=== PATIENT | male | born 1950 | race American Indian/Alaskan Native ===

== ENCOUNTER 2020-04-08 21:18 | Inpatient (IN) | payer MEDICARE ==
--- NOTE | 2020-04-08 23:34 | Cat Scan Report ---
CT HEAD WITHOUT CONTRAST INDICATION: Syncope TECHNIQUE: Axial slices were obtained through the head. Coronal and sagittal reformatted images are i s a 3A image obtained. COMPARISON: CT scan dated 09/19/2014 FINDINGS: There is no intracranial hemorrhage or extra-axial fluid collection. There is atrophy and microangiop athy. Ventricles are normal in size and position. Basal cisterns are maintained. There is no mass les ion or midline shift. There is decreased attenuation in the right frontal lobe white matter and poste rior negro matter characteristic of ischemic change. This was not present previously this appears to b e subacute or chronic. There are lacunar infarcts in the right basal ganglia and left thalamus which were present previously. Bone windows demonstrate no acute osseous abnormality. There is mucosal thickening in the right maxil skyla sinus. The TECHNIQUE: All CT scans at this facility use dose modulation, iterative reconstruction, automated ex posure control, weight based dosing, when appropriate, to reduce radiation dose to as low as reasonab ly achievable. IMPRESSION: 1. There is decreased attenuation in the right frontal white matter and right posterior frontal lobe negro matter characteristic of ischemic change. This appears to be subacute or chronic. There is no in tracranial hemorrhage. 2. There is atrophy and microangiopathy. 3. Chronic lacunar infarcts are noted in the right basal ganglia and left thalamus. Signer Name: Abimael Doll MD Signed: 04/08/2020 11:30 PM Workstation Name: [id number]
[2020-04-08 23:42] LABS: Basophils # (Auto) 0.1 K/mm3 (0.0-0.1); Basophils % (Auto) 0.8 % (0.0-1.8); Eosinophils # (Auto) 0.1 K/mm3 (0.0-0.4); Eosinophils % (Auto) 1.2 % (0.0-4.3); Hematocrit 35.4 % (35.5-45.6); Hemoglobin 11.8 gm/dl (11.8-15.2); Lymphocytes % (Auto) 29.4 % (13.4-35.0); Mean Corpuscular HGB Conc 33 % (32-34); Mean Corpuscular Volume 93 fl (84-94); Monocytes # (Auto) 0.5 K/mm3 (0.0-0.8); Monocytes % (Auto) 7.9 % (0.0-7.3); Platelet Count 234 K/mm3 (140-440); Red Cell Distribution Width 14.5 % (13.2-15.2)
[2020-04-08 23:55] LABS: INR 0.93 (0.87-1.13)
[2020-04-08 23:59] LABS: Alanine Aminotransferase 13 units/L (7-56); BUN/Creatinine Ratio 13; Blood Urea Nitrogen 16 mg/dL (9-20); Calcium 9.6 mg/dL (8.4-10.2); Hemolysis Index 5
--- NOTE | 2020-04-09 00:19 | XRay Report ---
CHEST 1 VIEW INDICATION / CLINICAL INFORMATION: Syncope. COMPARISON: None available. FINDINGS: SUPPORT DEVICES: None. HEART / MEDIASTINUM: No significant abnormality. LUNGS / PLEURA: No significant pulmonary or pleural abnormality.. No pneumothorax. ADDITIONAL FINDINGS: No significant additional findings. IMPRESSION: 1. No acute findings. Signer Name: Abimael Doll MD Signed: 04/09/2020 12:15 AM Workstation Name: [id number]
--- NOTE | 2020-04-09 02:54 | Emergency Department Report ---
ED Neuro Deficit HPI - General Chief Complaint: Syncope Stated Complaint: PASSING OUT/CHECK BP Time Seen by Provider: 04/09/20 02:06 Source: patient Mode of arrival: Wheelchair Limitations: Altered Mental Status - History of Present Illness Initial Comments: [facility] Tele[facility] Consult Services Stat Consult Date of Service: 04/09/2020 02:27:42 Impression: syncope Comments/Sign-Out: the patient had a 5 minute episode of syncope without any shaking or jerking movements. It sounds like he was in the sitting position the entire time so differential could include orthostasis, vagal episode, seizure, cardiogenic. The patient has a CT of the head and suspect these findings are actually chronic in the right frontal region although there are new from the patient's most recent neuro imaging in 2015. It appears to well-defined to be probably subacute although MRI could clarify. Certainly the patient is at risk for seizure with a ny history of stroke. If MRI of the brain showed an acute stroke of course additional neurodiagnostic testing targeted stroke could be considered. For now the patient may continue his home antiplatelet regimen. He needs to at least be on aspirin or alternate agent. Would recommend MRI brain and EEG and observation. Can get transthoracic echocardiogram. the patient is bradycardic also in the emergency department is a 50 be permanent range telemetry monitoring recommended CT HEAD: Reviewed chronic to subacute right frontal ischemic stroke Metrics: [facility] Notification Time: 04/09/2020 02:27:42 Stamp Time: 04/09/2020 02:27:42 Callback Response Time: 04/09/2020 02:30:32 Video Start Time: 04/09/2020 02:32:15 Video End Time: 04/09/2020 02:48:56 Our recommendations are outlined below. Recommendations: he may continue home antiplatelet regimen Imaging Studies: MRI Head Therapies: Physical Therapy, Occupational Therapy, Speech Therapy Assessment When Applicable Other WorkUp: Infectious/metabolic workup per primary team Check B12 level Check TSH Check Urinalysis Disposition: Neurology Follow Up Recommended Sign Out: Discussed with Emergency Department Provider Chief Complaint: syncope unresponsiveness History of Present Illness: Patient is a 70 year old Male. She said they were eating dinner then sudenly he went backwards and she tried to sit him up and she was shaking him hx prior stroke, dementia, HTN the patient to has dementia cannot provide any meaningful history it sounds like he does not remember anything about the event. his to bring them and says that they were eating dinner he was sitting up and he slumped backwards wasn't responding or speaking for about 5 minutes. She did not see any abnormal shaking or jerking movements. He was not appearing to be in any discomfort or complaining of chest pain. The patient is moderately hypertensive in the emergency department. Has no history of prior syncope. Also has a history of diabetes, prior stroke, dementia. the patient had a CT of his head that shows some subcortical changes in the right frontal lobe consistent with subacute or chronic infarction. The patient has had a prior MRI of the brain in 2014 which is his most recent neuro imaging showing diffusion restriction in the left thalamus and a small infarction of the right medial temporal lobe. per his he does not have any deficit at baseline from his prior strokes. it sounds like his tried to sit him up when he weaned backward he never got flat during this episode Examination: BP(163/80), Pulse(56), Blood Glucose(235) 1A: Level of Consciousness - Alert; keenly responsive + 0 1B: Ask Month and Age - Could Not Answer Either Question Correctly + 2 1C: Blink Eyes & Squeeze Hands - Performs Both Tasks + 0 2: Test Horizontal Extraocular Movements - Normal + 0 3: Test Visual Topete - No Visual Loss + 0 4: Test Facial Palsy (Use Grimace if Obtunded) - Normal symmetry + 0 5A: Test Left Arm Motor Drift - No Drift for 10 Seconds + 0 5B: Test Right Arm Motor Drift - No Drift for 10 Seconds + 0 6A: Test Left Leg Motor Drift - No Drift for 5 Seconds + 0 6B: Test Right Leg Motor Drift - No Drift for 5 Seconds + 0 7: Test Limb Ataxia (FNF/Heel-Anderson) - No Ataxia + 0 8: Test Sensation - Normal; No sensory loss + 0 9: Test Language/Aphasia - Normal; No aphasia + 0 10: Test Dysarthria - Normal + 0 11: Test Extinction/Inattention - No abnormality + 0 NIHSS Score: 2 Patient/Family was informed the Neurology Consult would happen via TeleHealth consult by way of interactive audio and video telecommunications and consented to receiving care in this manner. Due to the immediate potential for life-threatening deterioration due to underlying acute neurologic illness, I spent 35 minutes providing critical care. This time includes time for face to face visit via telemedicine, review of medical records, imaging studies and discussion of findings with providers, the patient and/or family. Dr Bia Gaxiola [facility] Case [id number] - Related Data Home Medications: Previous Rx's Medication Instructions Recorded Last Taken Type Aspirin 325 mg PO QDAY #30 tablet 09/23/14 Unknown Rx Simvastatin (Nf) [Zocor TAB] 20 mg PO QHS #30 tablet 09/23/14 Unknown Rx amLODIPine 10 mg PO QDAY #30 tablet 09/23/14 Unknown Rx lisinopriL [Zestril TAB] 10 mg PO QDAY #30 tablet 09/23/14 Unknown Rx Allergies/Adverse Reactions: Allergies Allergy/AdvReac Type Severity Reaction Status Date / Time No Known Allergies Allergy Verified 09/19/14 17:12 ED Review of Systems ROS: Stated complaint: PASSING OUT/CHECK BP Other details as noted in HPI ED Past Medical Hx - Past Medical History Hx Hypertension: Yes Hx CVA: Yes Hx Congestive Heart Failure: No Hx Diabetes: Yes Hx Asthma: No Hx COPD: No - Surgical History Past Surgical History?: No - Social History Smoking Status: Never Smoker Substance Use Type: None - Medications Home Medications: Home Medications Medication Instructions Recorded Confirmed Last Taken Type Aspirin 325 mg PO QDAY #30 tablet 09/23/14 Unknown Rx Simvastatin (Nf) [Zocor TAB] 20 mg PO QHS #30 tablet 09/23/14 Unknown Rx amLODIPine 10 mg PO QDAY #30 tablet 09/23/14 Unknown Rx lisinopriL [Zestril TAB] 10 mg PO QDAY #30 tablet 09/23/14 Unknown Rx ED Neuro Physical Exam - General Limitations: Altered Mental Status Suspected Stroke: No ED Course Vital Signs 04/08/20 04/09/20 04/09/20 22:44 02:01 02:02 Temperature 98.4 F Pulse Rate 61 Respiratory 18 Rate Blood Pressure 141/57 179/71 O2 Sat by Pulse 98 92 99 Oximetry 04/09/20 04/09/20 04/09/20 02:04 02:06 02:08 Temperature Pulse Rate 59 L 51 L 55 L Respiratory 11 L 13 12 Rate Blood Pressure 179/71 163/80 163/80 O2 Sat by Pulse 96 100 97 Oximetry 04/09/20 04/09/20 02:10 02:45 Temperature Pulse Rate 56 L Respiratory 13 18 Rate Blood Pressure 163/80 O2 Sat by Pulse 99 100 Oximetry - Lab Data Result diagrams: 04/08/20 23:20 04/08/20 23:20 Lab Results 04/08/20 04/08/20 04/08/20 Range/Units 23:20 23:20 23:20 WBC 6.9 (4.5-11.0) K/mm3 RBC 3.80 (3.65-5.03) M/mm3 Hgb 11.8 (11.8-15.2) gm/dl Hct 35.4 L (35.5-45.6) % MCV 93 (84-94) fl MCH 31 (28-32) pg MCHC 33 (32-34) % RDW 14.5 (13.2-15.2) % Plt Count 234 (140-440) K/mm3 Lymph % (Auto) 29.4 (13.4-35.0) % [place] % (Auto) 7.9 H (0.0-7.3) % Eos % (Auto) 1.2 (0.0-4.3) % Baso % (Auto) 0.8 (0.0-1.8) % Lymph # (Auto) 2.0 (1.2-5.4) K/mm3 [place] # (Auto) 0.5 (0.0-0.8) K/mm3 Eos # (Auto) 0.1 (0.0-0.4) K/mm3 Baso # (Auto) 0.1 (0.0-0.1) K/mm3 Seg Neutrophils % 60.7 (40.0-70.0) % Seg Neutrophils # 4.2 (1.8-7.7) K/mm3 PT 12.6 (12.2-14.9) Sec. INR 0.93 (0.87-1.13) Sodium 140 (137-145) mmol/L Potassium 4.5 (3.6-5.0) mmol/L Chloride 103.0 (98-107) mmol/L Carbon Dioxide 26 (22-30) mmol/L Anion Gap 16 mmol/L BUN 16 (9-20) mg/dL Creatinine 1.2 (0.8-1.3) mg/dL Estimated GFR > 60 ml/min BUN/Creatinine Ratio 13 % Glucose 235 H (75-100) mg/dL Calcium 9.6 (8.4-10.2) mg/dL Magnesium 2.20 (1.7-2.3) mg/dL Total Bilirubin 0.20 (0.1-1.2) mg/dL AST 16 (5-40) units/L ALT 13 (7-56) units/L Alkaline Phosphatase 88 (35-129) units/L Total Creatine Kinase 62 (55-170) units/L Troponin T < 0.010 (0.00-0.029) ng/mL Total Protein 7.3 (6.3-8.2) g/dL Albumin 4.0 (3.9-5) g/dL Albumin/Globulin Ratio 1.2 % TSH (0.270-4.200) mlU/mL Salicylates (2.8-20.0) mg/dL Acetaminophen (10.0-30.0) ug/mL 04/08/2004/08/04/08/20 Range/Units 23:20 23:20 23:20 WBC (4.5-11.0) K/mm3 RBC (3.65-5.03) M/mm3 Hgb (11.8-15.2) gm/dl Hct (35.5-45.6) % MCV (84-94) fl MCH (28-32) pg MCHC (32-34) % RDW (13.2-15.2) % Plt Count (140-440) K/mm3 Lymph % (Auto) (13.4-35.0) % [place] % (Auto) (0.0-7.3) % Eos % (Auto) (0.0-4.3) % Baso % (Auto) (0.0-1.8) % Lymph # (Auto) (1.2-5.4) K/mm3 [place] # (Auto) (0.0-0.8) K/mm3 Eos # (Auto) (0.0-0.4) K/mm3 Baso # (Auto) (0.0-0.1) K/mm3 Seg Neutrophils % (40.0-70.0) % Seg Neutrophils # (1.8-7.7) K/mm3 PT (12.2-14.9) Sec. INR (0.87-1.13) Sodium (137-145) mmol/L Potassium (3.6-5.0) mmol/L Chloride (98-107) mmol/L Carbon Dioxide (22-30) mmol/L Anion Gap mmol/L BUN (9-20) mg/dL Creatinine (0.8-1.3) mg/dL Estimated GFR ml/min BUN/Creatinine Ratio % Glucose (75-100) mg/dL Calcium (8.4-10.2) mg/dL Magnesium (1.7-2.3) mg/dL Total Bilirubin (0.1-1.2) mg/dL AST (5-40) units/L ALT (7-56) units/L Alkaline Phosphatase (35-129) units/L Total Creatine Kinase (55-170) units/L Troponin T (0.00-0.029) ng/mL Total Protein (6.3-8.2) g/dL Albumin (3.9-5) g/dL Albumin/Globulin Ratio % TSH 1.380 (0.270-4.200) mlU/mL Salicylates < 0.3 L (2.8-20.0) mg/dL Acetaminophen 5.0 L (10.0-30.0) ug/mL Critical care attestation.: If time is entered above; I have spent that time in minutes in the direct care of this critically ill patient, excluding procedure time. ED Disposition Clinical Impression: Syncope Qualifiers: Syncope type: unspecified Qualified Code(s): R55 - Syncope and collapse Disposition: OP ADMIT IP TO THIS HOSP Is pt being admited?: Yes Condition: Stable Instructions: Syncope (ED) Referrals: PRIMARY CARE, [Primary Care Provider] - 3-5 Days
--- NOTE | 2020-04-09 03:28 | Emergency Department Report ---
ED Neuro Deficit HPI - General Chief Complaint: Syncope Stated Complaint: PASSING OUT/CHECK BP Time Seen by Provider: 04/09/20 02:06 Source: patient Mode of arrival: Wheelchair Limitations: Altered Mental Status - History of Present Illness Initial Comments: Patient is 70 years old male with history of hypertension and diabetes and a previous CVA with no residual deficit. Patient brought to the emergency room by his . He stated that he was sitting on the kitchen table when all of a sudden he passed out for approximately 5 minutes. She stated that she tried to shake him but he was not responding to her. Patient stated that he does not remember any of that. He denied any jerking or shaking movement. Patient currently is alert, oriented x3 and in no acute distress. No focal deficit. Stroke teleneurology consulted and patient examined by Dr. Bertrand. She advised to admit the patient to the hospital for stroke and syncope work-up. -: Sudden Time: 18:30 Location: altered Presenting Symptoms: Present: Altered Mental Status Place: home Severity: moderate Context: sudden onset - Related Data Home Medications: Previous Rx's Medication Instructions Recorded Last Taken Type Aspirin 325 mg PO QDAY #30 tablet 09/23/14 Unknown Rx Simvastatin (Nf) [Zocor TAB] 20 mg PO QHS #30 tablet 09/23/14 Unknown Rx amLODIPine 10 mg PO QDAY #30 tablet 09/23/14 Unknown Rx lisinopriL [Zestril TAB] 10 mg PO QDAY #30 tablet 09/23/14 Unknown Rx Allergies/Adverse Reactions: Allergies Allergy/AdvReac Type Severity Reaction Status Date / Time No Known Allergies Allergy Verified 09/19/14 17:12 ED Review of Systems ROS: Stated complaint: PASSING OUT/CHECK BP Other details as noted in HPI Comment: All other systems reviewed and negative Constitutional: denies: chills, fever Respiratory: denies: cough, shortness of breath, SOB with exertion Cardiovascular: denies: chest pain, palpitations Gastrointestinal: denies: abdominal pain, nausea, vomiting Musculoskeletal: denies: back pain Neurological: denies: headache, weakness ED Past Medical Hx - Past Medical History Hx Hypertension: Yes Hx CVA: Yes Hx Congestive Heart Failure: No Hx Diabetes: Yes Hx Asthma: No Hx COPD: No - Surgical History Past Surgical History?: No - Social History Smoking Status: Never Smoker Substance Use Type: None - Medications Home Medications: Home Medications Medication Instructions Recorded Confirmed Last Taken Type Aspirin 325 mg PO QDAY #30 tablet 09/23/14 Unknown Rx Simvastatin (Nf) [Zocor TAB] 20 mg PO QHS #30 tablet 09/23/14 Unknown Rx amLODIPine 10 mg PO QDAY #30 tablet 09/23/14 Unknown Rx lisinopriL [Zestril TAB] 10 mg PO QDAY #30 tablet 09/23/14 Unknown Rx ED Neuro Physical Exam - General Limitations: Altered Mental Status General appearance: alert, in no apparent distress Suspected Stroke: Yes - Head Head exam: Present: atraumatic, normocephalic, normal inspection - Eye Eye exam: Present: normal appearance - ENT ENT exam: Present: normal exam, normal orophraynx, mucous membranes moist - Neck Neck exam: Present: normal inspection, full ROM. Absent: tenderness, meningismus - Respiratory Respiratory exam: Present: normal lung sounds bilaterally - Cardiovascular Cardiovascular Exam: Present: regular rate, normal rhythm, normal heart sounds - GI/Abdominal GI/Abdominal exam: Present: soft, normal bowel sounds. Absent: distended, tenderness, guarding, rebound, rigid, organomegaly, mass, bruit, pulsatile mass, hernia - Extremities Exam Extremities exam: Present: normal inspection, full ROM, normal capillary refill. Absent: tenderness, pedal edema, calf tenderness - Back Exam Back exam: Present: normal inspection, full ROM. Absent: CVA tenderness (R), CVA tenderness (L) - Neurological Exam Neurological exam: Present: alert, oriented X3, CN II-XII intact, normal gait, reflexes normal. Absent: motor sensory deficit - NIHSS Assessment Interval: Baseline 1a. Level of Consciousness: alert/keenly responsive 1b. LOC Questions: answers no questions correctly 1c. LOC Commands: performs tasks correctly 2. Best Gaze: normal 3. Visual: no visual loss 4. Facial Palsy: normal symmetrical movement 5b. Motor Arm Right: no drift 5a. Motor Arm Left: no drift 6a. Motor Leg Left: no drift 6b. Motor Leg Right: no drift 7. Limb Ataxia: absent 8. Sensory: normal 9. Best Language: no aphasia 10. Dysarthria: normal 11. Extinction/Inattention: no abnormality Total Score: 2 Stroke Severity: Minor Stroke - Psychiatric Psychiatric exam: Present: normal mood - Skin Skin exam: Present: warm, intact, normal color ED Course Vital Signs 04/08/20 04/09/20 04/09/20 22:44 02:01 02:02 Temperature 98.4 F Pulse Rate 61 Respiratory 18 Rate Blood Pressure 141/57 179/71 O2 Sat by Pulse 98 92 99 Oximetry 04/09/20 04/09/20 04/09/20 02:04 02:06 02:08 Temperature Pulse Rate 59 L 51 L 55 L Respiratory 11 L 13 12 Rate Blood Pressure 179/71 163/80 163/80 O2 Sat by Pulse 96 100 97 Oximetry 04/09/20 04/09/20 04/09/20 02:10 02:12 02:14 Temperature Pulse Rate 56 L 58 L 60 Respiratory 13 14 10 L Rate Blood Pressure 163/80 163/80 163/80 O2 Sat by Pulse 99 99 99 Oximetry 04/09/20 04/09/20 04/09/20 02:16 02:18 02:20 Temperature Pulse Rate 56 L 59 L 62 Respiratory 8 L 17 8 L Rate Blood Pressure 163/80 163/80 163/80 O2 Sat by Pulse 100 99 99 Oximetry 04/09/20 04/09/20 04/09/20 02:22 02:24 02:26 Temperature Pulse Rate 57 L 56 L 58 L Respiratory 12 14 11 L Rate Blood Pressure 163/80 163/80 163/80 O2 Sat by Pulse 96 100 98 Oximetry 04/09/20 04/09/20 04/09/20 02:28 02:30 02:32 Temperature Pulse Rate 55 L 53 L 53 L Respiratory 13 11 L 17 Rate Blood Pressure 163/80 155/78 155/78 O2 Sat by Pulse 94 99 97 Oximetry 04/09/20 04/09/20 04/09/20 02:34 02:36 02:38 Temperature Pulse Rate 57 L 56 L 56 L Respiratory 9 L 16 10 L Rate Blood Pressure 155/78 155/78 155/78 O2 Sat by Pulse 87 99 97 Oximetry 04/09/20 04/09/20 04/09/20 02:40 02:42 02:44 Temperature Pulse Rate 54 L 52 L 60 Respiratory 10 L 13 17 Rate Blood Pressure 155/78 163/80 163/80 O2 Sat by Pulse 93 98 92 Oximetry 04/09/20 04/09/20 04/09/20 02:45 02:46 02:48 Temperature Pulse Rate 58 L 94 H Respiratory 18 10 L 13 Rate Blood Pressure 163/80 163/80 O2 Sat by Pulse 100 93 96 Oximetry 04/09/20 04/09/20 04/09/20 02:50 02:52 02:54 Temperature Pulse Rate 103 H 75 Respiratory 29 H 20 19 Rate Blood Pressure 163/80 163/80 163/80 O2 Sat by Pulse 95 95 Oximetry 04/09/20 02:56 Temperature Pulse Rate Respiratory 17 Rate Blood Pressure 163/80 O2 Sat by Pulse Oximetry - Lab Data Result diagrams: 04/08/20 23:20 04/08/20 23:20 Lab Results 04/08/20 04/08/20 04/08/20 Range/Units 23:20 23:20 23:20 WBC 6.9 (4.5-11.0) K/mm3 RBC 3.80 (3.65-5.03) M/mm3 Hgb 11.8 (11.8-15.2) gm/dl Hct 35.4 L (35.5-45.6) % MCV 93 (84-94) fl MCH 31 (28-32) pg MCHC 33 (32-34) % RDW 14.5 (13.2-15.2) % Plt Count 234 (140-440) K/mm3 Lymph % (Auto) 29.4 (13.4-35.0) % [place] % (Auto) 7.9 H (0.0-7.3) % Eos % (Auto) 1.2 (0.0-4.3) % Baso % (Auto) 0.8 (0.0-1.8) % Lymph # (Auto) 2.0 (1.2-5.4) K/mm3 [place] # (Auto) 0.5 (0.0-0.8) K/mm3 Eos # (Auto) 0.1 (0.0-0.4) K/mm3 Baso # (Auto) 0.1 (0.0-0.1) K/mm3 Seg Neutrophils % 60.7 (40.0-70.0) % Seg Neutrophils # 4.2 (1.8-7.7) K/mm3 PT 12.6 (12.2-14.9) Sec. INR 0.93 (0.87-1.13) Sodium 140 (137-145) mmol/L Potassium 4.5 (3.6-5.0) mmol/L Chloride 103.0 (98-107) mmol/L Carbon Dioxide 26 (22-30) mmol/L Anion Gap 16 mmol/L BUN 16 (9-20) mg/dL Creatinine 1.2 (0.8-1.3) mg/dL Estimated GFR > 60 ml/min BUN/Creatinine Ratio 13 % Glucose 235 H (75-100) mg/dL Calcium 9.6 (8.4-10.2) mg/dL Magnesium 2.20 (1.7-2.3) mg/dL Total Bilirubin 0.20 (0.1-1.2) mg/dL AST 16 (5-40) units/L ALT 13 (7-56) units/L Alkaline Phosphatase 88 (35-129) units/L Total Creatine Kinase 62 (55-170) units/L Troponin T < 0.010 (0.00-0.029) ng/mL Total Protein 7.3 (6.3-8.2) g/dL Albumin 4.0 (3.9-5) g/dL Albumin/Globulin Ratio 1.2 % TSH (0.270-4.200) mlU/mL Salicylates (2.8-20.0) mg/dL Acetaminophen (10.0-30.0) ug/mL 04/08/20 04/08/20 04/08/20 Range/Units 23:20 23:20 23:20 WBC (4.5-11.0) K/mm3 RBC (3.65-5.03) M/mm3 Hgb (11.8-15.2) gm/dl Hct (35.5-45.6) % MCV (84-94) fl MCH (28-32) pg MCHC (32-34) % RDW (13.2-15.2) % Plt Count (140-440) K/mm3 Lymph % (Auto) (13.4-35.0) % [place] % (Auto) (0.0-7.3) % Eos % (Auto) (0.0-4.3) % Baso % (Auto) (0.0-1.8) % Lymph # (Auto) (1.2-5.4) K/mm3 [place] # (Auto) (0.0-0.8) K/mm3 Eos # (Auto) (0.0-0.4) K/mm3 Baso # (Auto) (0.0-0.1) K/mm3 Seg Neutrophils % (40.0-70.0) % Seg Neutrophils # (1.8-7.7) K/mm3 PT (12.2-14.9) Sec. INR (0.87-1.13) Sodium (137-145) mmol/L Potassium (3.6-5.0) mmol/L Chloride (98-107) mmol/L Carbon Dioxide (22-30) mmol/L Anion Gap mmol/L BUN (9-20) mg/dL Creatinine (0.8-1.3) mg/dL Estimated GFR ml/min BUN/Creatinine Ratio % Glucose (75-100) mg/dL Calcium (8.4-10.2) mg/dL Magnesium (1.7-2.3) mg/dL Total Bilirubin (0.1-1.2) mg/dL AST (5-40) units/L ALT (7-56) units/L Alkaline Phosphatase (35-129) units/L Total Creatine Kinase (55-170) units/L Troponin T (0.00-0.029) ng/mL Total Protein (6.3-8.2) g/dL Albumin (3.9-5) g/dL Albumin/Globulin Ratio % TSH 1.380 (0.270-4.200) mlU/mL Salicylates < 0.3 L (2.8-20.0) mg/dL Acetaminophen 5.0 L (10.0-30.0) ug/mL - EKG Data -: EKG Interpreted by Nm EKG shows normal: sinus rhythm Rate: normal When compared to previous EKG there are: no significant change - Radiology Data Radiology results: report reviewed - Medical Decision Making Patient is 70 years old male with history of hypertension and diabetes and a previous CVA with no residual deficit. Patient brought to the emergency room by his . He stated that he was sitting on the kitchen table when all of a sudden he passed out for approximately 5 minutes. She stated that she tried to shake him but he was not responding to her. Patient stated that he does not remember any of that. He denied any jerking or shaking movement. Patient currently is alert, oriented x3 and in no acute distress. No focal deficit. Stroke teleneurology consulted and patient examined by Dr. Bertrand. She advised to admit the patient to the hospital for stroke and syncope work-up. CT brain is negative for acute finding. Labs reviewed and showed no acute abnormalities. I discussed the patient with Dr. Loco, he agreed to admit the patient to medical service for further management. Critical Care Time: Yes Critical care time in (mins) excluding proc time.: 30 Critical care attestation.: If time is entered above; I have spent that time in minutes in the direct care of this critically ill patient, excluding procedure time. ED Disposition Clinical Impression: Syncope and collapse, TIA (transient ischemic attack) Disposition: DC-09 OP ADMIT IP TO THIS HOSP Is pt being admited?: Yes Condition: Stable Instructions: Syncope (ED) Referrals: PRIMARY CARE, [Primary Care Provider] - 3-5 Days
[2020-04-09] MEDS ORDERED: ASPIRIN 325 MG TAB PO ONE (03:35)
[2020-04-09 04:28] LABS: INR 0.94 (0.87-1.13)
[2020-04-09 04:29] LABS: Partial Thromboplastin Time 29.2 Sec. (24.2-36.6); Thrombin Time 16.3 Sec. (15.1-19.6)
[2020-04-09 04:31] LABS: Creatine Kinase MB 1.4 ng/mL (0.0-4.0)
[2020-04-09] MEDS ORDERED: DEXTROSE 50% IN WATER (25GM) 50 ML SYRINGE IV PRN (05:35)
--- NOTE | 2020-04-09 06:34 | History and Physical Report ---
History of Present Illness Date of examination: 04/09/20 Date of admission: 04/09/20 03:37 Chief complaint: SYNCOPE History of present illness: 70 year old male brought to ED by the after he passed out at home while they are on the kitchen table, There was no history of jerky movement of the body, chest pain ,shortness of breath , nausea or vomiting. patient did not remember the event after 5 minutes of fainting. Past History Past Medical History: diabetes, hypertension, stroke Past Surgical History: No surgical history Social history: no significant social history Medications and Allergies Allergies Allergy/AdvReac Type Severity Reaction Status Date / Time No Known Allergies Allergy Verified 09/19/14 17:12 Home Medications Medication Instructions Recorded Confirmed Last Taken Type Aspirin 325 mg PO QDAY #30 tablet 09/23/14 04/09/20 Unknown Rx Simvastatin (Nf) [Zocor TAB] 20 mg PO QHS #30 tablet 09/23/14 04/09/20 Unknown Rx amLODIPine 10 mg PO QDAY #30 tablet 09/23/14 04/09/20 Unknown Rx lisinopriL [Zestril TAB] 10 mg PO QDAY #30 tablet 09/23/14 04/09/20 Unknown Rx Memantine/Donepezil (Nf) [Namzaric 1 cap PO DAILY 04/09/20 04/09/20 Unknown History 28 mg-10 mg (Nf)] Naproxen [EC-Naproxen] 500 mg PO BID PRN 04/09/20 04/09/20 Unknown History Sertraline [Zoloft] 50 mg PO QDAY 04/09/20 04/09/20 Unknown History Active Meds: Active Medications Aspirin (Aspirin) 325 mg PO QDAY BENJAMIN Dextrose (D50w (25gm) Syringe) 0 ml IV Q30MIN PRN; Protocol PRN Reason: Hypoglycemia Sodium Chloride (Nacl 0.9% 1000 Ml) 1,000 mls @ 75 mls/hr IV DIRECT BENJAMIN Insulin Human Regular (Humulin R) 0 unit SUB-Q AC BENJAMIN; Protocol Insulin Human Regular (Humulin R) 0 unit SUB-Q QHS BENJAMIN; Protocol Review of Systems Constitutional: weakness, no weight loss, no weight gain, no fever, no chills, no sweats, no night sweats, no anorexia, no fatigue, no malaise, no lethargy Eyes: bilateral: other (NO BILATERAL EYE SYMPTOMS) Ears, nose, mouth and throat: no ear pain, no ear discharge, no nasal congestion, no sinus pressure Cardiovascular: no chest pain, no orthopnea, no palpitations, no syncope, no lightheadedness, no shortness of breath Respiratory: no cough, no cough with sputum, no shortness of breath, no dyspnea on exertion, no congestion, no wheezing Gastrointestinal: no abdominal pain, no nausea, no vomiting, no diarrhea, no constipation, no change in bowel habits, no coffee ground emesis, no hematochezia Genitourinary Male: no dysuria, no hematuria, no flank pain, no discharge, no urinary frequency, no urinary hesitancy, no nocturia Rectal: no pain Musculoskeletal: no neck stiffness, no neck pain, no shooting arm pain, no low back pain, no shooting leg pain, no leg numbness/tingling Integumentary: no rash, no redness, no sores, no wounds, no jaundice, no boils Neurological: syncope, confusion, no paralysis, no weakness, no parathesias, no numbness, no tingling, no seizures, no tremors, no ataxia, no vertigo, no headaches, no migraines, no convulsions, no aphasia, no change in speech, no change in mentation Psychiatric: no anxiety, no memory loss, no insomnia, no hypersomnia, no change in appetite, no change in libido, no suicidal ideation, no depression Endocrine: no cold intolerance, no heat intolerance, no polydipsia, no polyuria, no nocturia, no excessive sweating, no flushing, no palpatations Hematologic/Lymphatic: no easy bruising, no easy bleeding, no lymphadenopathy Allergic/Immunologic: no urticaria Exam - Constitutional Vitals: Temp Pulse Resp BP Pulse Ox 98.4 F 59 L 12 173/85 95 04/08/20 22:44 04/09/20 03:30 04/09/20 03:30 04/09/20 05:30 04/09/20 05:30 General appearance: Present: no acute distress - EENT Eyes: Present: PERRL, EOM intact ENT: hearing intact, clear oral mucosa, dentition normal - Neck Neck: Present: supple, normal ROM. Absent: enlarged thyroid - Respiratory Respiratory effort: normal - Cardiovascular Rhythm: regular Heart Sounds: Present: S1 & S2. Absent: gallop, systolic murmur, diastolic murmur, click - Extremities Extremities: no ischemia, No edema Peripheral Pulses: within normal limits - Abdominal General gastrointestinal: Present: soft, non-tender, non-distended. Absent: tender, distended, rigid, hepatomegaly, splenomegaly Male genitourinary: Present: deferred - Rectal Rectal Exam: deferred - Integumentary Integumentary: Present: clear, warm, dry. Absent: erythema, jaundice - Musculoskeletal Musculoskeletal: strength equal bilaterally - Psychiatric Psychiatric: appropriate mood/affect HEART Score - HEART Score Age: > 65 Risk factors: 1-2 risk factors Troponin: Troponin T < 0.010 ng/mL (0.00-0.029) 04/09/20 03:46 - Critical Actions Critical Actions: 0-3 pts:0.9-1.7%risk of adverse cardiac event.Candidate for discharge Results - Labs CBC & Chem 7: 04/08/20 23:20 04/08/20 23:20 Labs: Laboratory Last Values WBC 6.9 K/mm3 (4.5-11.0) 04/08/20 23:20 RBC 3.80 M/mm3 (3.65-5.03) 04/08/20 23:20 Hgb 11.8 gm/dl (11.8-15.2) 04/08/20 23:20 Hct 35.4 % (35.5-45.6) L 04/08/20 23:20 MCV 93 fl (84-94) 04/08/20 23:20 MCH 31 pg (28-32) 04/08/20 23:20 MCHC 33 % (32-34) 04/08/20 23:20 RDW 14.5 % (13.2-15.2) 04/08/20 23:20 Plt Count 234 K/mm3 (140-440) 04/08/20 23:20 Lymph % (Auto) 29.4 % (13.4-35.0) 04/08/20 23:20 [place] % (Auto) 7.9 % (0.0-7.3) H 04/08/20 23:20 Eos % (Auto) 1.2 % (0.0-4.3) 04/08/20 23:20 Baso % (Auto) 0.8 % (0.0-1.8) 04/08/20 23:20 Lymph # (Auto) 2.0 K/mm3 (1.2-5.4) 04/08/20 23:20 [place] # (Auto) 0.5 K/mm3 (0.0-0.8) 04/08/20 23:20 Eos # (Auto) 0.1 K/mm3 (0.0-0.4) 04/08/20 23:20 Baso # (Auto) 0.1 K/mm3 (0.0-0.1) 04/08/20 23:20 Seg Neutrophils % 60.7 % (40.0-70.0) 04/08/20 23:20 Seg Neutrophils # 4.2 K/mm3 (1.8-7.7) 04/08/20 23:20 PT 12.8 Sec. (12.2-14.9) 04/09/20 03:46 INR 0.94 (0.87-1.13) 04/09/20 03:46 APTT 29.2 Sec. (24.2-36.6) 04/09/20 03:46 Thrombin Time 16.3 Sec. (15.1-19.6) 04/09/20 03:46 Sodium 140 mmol/L (137-145) 04/08/20 23:20 Potassium 4.5 mmol/L (3.6-5.0) 04/08/20 23:20 Chloride 103.0 mmol/L (98-107) 04/08/20 23:20 Carbon Dioxide 26 mmol/L (22-30) 04/08/20 23:20 Anion Gap 16 mmol/L 04/08/20 23:20 BUN 16 mg/dL (9-20) 04/08/20 23:20 Creatinine 1.2 mg/dL (0.8-1.3) 04/08/20 23:20 Estimated GFR > 60 ml/min 04/08/20 23:20 BUN/Creatinine Ratio 13 % 04/08/20 23:20 Glucose 235 mg/dL (75-100) H 04/08/20 23:20 Calcium 9.6 mg/dL (8.4-10.2) 04/08/20 23:20 Magnesium 2.20 mg/dL (1.7-2.3) 04/08/20 23:20 Total Bilirubin 0.20 mg/dL (0.1-1.2) 04/08/20 23:20 AST 16 units/L (5-40) 04/08/20 23:20 ALT 13 units/L (7-56) 04/08/20 23:20 Alkaline Phosphatase 88 units/L (35-129) 04/08/20 23:20 Total Creatine Kinase 66 units/L (55-170) 04/09/20 03:46 CK-MB (CK-2) 1.4 ng/mL (0.0-4.0) 04/09/20 03:46 CK-MB (CK-2) Rel Index 2.1 (0-4) 04/09/20 03:46 Troponin T < 0.010 ng/mL (0.00-0.029) 04/09/20 03:46 Total Protein 7.3 g/dL (6.3-8.2) 04/08/20 23:20 Albumin 4.0 g/dL (3.9-5) 04/08/20 23:20 Albumin/Globulin Ratio 1.2 % 04/08/20 23:20 TSH 1.380 mlU/mL (0.270-4.200) 04/08/20 23:20 Salicylates < 0.3 mg/dL (2.8-20.0) L 04/08/20 23:20 Acetaminophen 5.0 ug/mL (10.0-30.0) L 04/08/20 23:20 Collazo/IV: IV Catheter Type [Right INT / Saline Lock Antecubital] Assessment and Plan - Patient Problems (1) TIA (transient ischemic attack) Current Visit: Yes Status: Acute Plan to address problem: 1. NEUROLOGY CONSULT 2. PHYSICAL AND SPEECH THERAPY CONSULT 3. BILATERAL CAROTID ULTRASOUND 4. 2. DECHOCARDIOGRAM 5. ASPIRIN PO (2) Syncope Current Visit: Yes Status: Acute Qualifiers: Syncope type: unspecified Qualified Code(s): R55 - Syncope and collapse Plan to address problem: 1. 2 D ECHOCARDIOGRAM 2. BILATERAL CAROTID ULTRASOUND 3. SERIAL TROPONIN LEVEL 4. I.V NORMAL SALINE (3) Confusion Current Visit: No Status: Acute Plan to address problem: FALL PRECAUTION
[2020-04-09] MEDS: SODIUM CHLORIDE 0.9% 1000 ML 1,000 ML IV SCH (06:54)
[2020-04-09] MEDS: INSULIN REGULAR, HUMAN 100 UNIT/ML 3ML VIAL SUB-Q SCH ×3 (08:06→17:36)
--- NOTE | 2020-04-09 10:00 | Consultation ---
History of Present Illness Consult date: 04/09/20 Requesting physician: MICHAEL SCHROEDER Reason for Consult: Syncope Chief complaint: Passed out History of present illness: 70 yo male with htn, dm, stroke (left thalamus and a small infarction of the right medial temporal lobe), dementia, brought in by family beause he passed out while he was eating dinner and he was not responsive for ~5 minutes. The patient did not remember passing out when seen in the ED. The NCHCT revealed some subcortical changes involving the right frontal lobe. Per his , during the ED visit, notes that the patient had no residual deficits from the previous stroke. This morning the patient became agitated and he was given Ativan 2 mg IV x 1 dose and is placed to bilateral wrist restraints so no further history can be obtained at present. Past History Past Medical History: diabetes, hypertension, stroke Past Surgical History: No surgical history Social history: no significant social history Medications and Allergies Allergies Allergy/AdvReac Type Severity Reaction Status Date / Time No Known Allergies Allergy Verified 09/19/14 17:12 Home Medications Medication Instructions Recorded Confirmed Last Taken Type Aspirin 325 mg PO QDAY #30 tablet 09/23/14 04/09/20 Unknown Rx Simvastatin (Nf) [Zocor TAB] 20 mg PO QHS #30 tablet 09/23/14 04/09/20 Unknown Rx amLODIPine 10 mg PO QDAY #30 tablet 09/23/14 04/09/20 Unknown Rx lisinopriL [Zestril TAB] 10 mg PO QDAY #30 tablet 09/23/14 04/09/20 Unknown Rx Memantine/Donepezil (Nf) [Namzaric 1 cap PO DAILY 04/09/20 04/09/20 Unknown History 28 mg-10 mg (Nf)] Naproxen [EC-Naproxen] 500 mg PO BID PRN 04/09/20 04/09/20 Unknown History Sertraline [Zoloft] 50 mg PO QDAY 04/09/20 04/09/20 Unknown History Active Meds: Active Medications Aspirin (Aspirin) 325 mg PO QDAY BENJAMIN Dextrose (D50w (25gm) Syringe) 0 ml IV Q30MIN PRN; Protocol PRN Reason: Hypoglycemia Sodium Chloride (Nacl 0.9% 1000 Ml) 1,000 mls @ 75 mls/hr IV DIRECT BENJAMIN Last Admin: 04/09/20 06:54 Dose: 75 mls/hr Documented by: Insulin Human Regular (Humulin R) 0 unit SUB-Q BENJAMIN; Protocol Insulin Human Regular (Humulin R) 0 unit SUB-Q Q BENJAMIN; Protocol Review of Systems ROS unobtainable: due to mental status Physical Examination - Vital Signs Vital Signs: Vital Signs Temp Pulse Resp BP Pulse Ox 98.4 F 61 18 141/57 98 04/08/20 22:44 04/08/20 22:44 04/08/20 22:44 04/08/20 22:44 04/08/20 22:44 - Additional Exam Additional Exam: Gen: nad, well-nourished; Head: normocephalic; Eyes: no gaze deviation; no ptosis appreciated; ENT: no oral blood products; CVS: warm and well-perfused; Pulm: no respiratory distress; GI: non-distended, protuberant; Ext: no cyanosis at distal extremities; Skin: no acute at distal extremities; Heme: no ecchymosis at distal extremities; Neuro: obtunded, aphasic, mute, CN 2 - sluggish reactive pupils, CN 3, 4, 6 - oculocephalic intact, CN 5/7 - opens eyes slightly to stimuli, CN 9/10 - swallowing not appreciated, CN 11/12 - pt cannot cooperate secondary to LOC; Motor/Sensory - at least 1/5 in all exts to tactile stimuli; Cerebellar/Gait - pt cannot cooperate secondary to LOC; NIHSS>28; Results - Laboratory Findings CBC and BMP: 04/08/20 23:20 04/08/20 23:20 Abnormal Lab Findings: Abnormal Labs 04/08/20 04/08/20 04/08/20 23:20 23:20 23:20 Hct 35.4 L [place] % (Auto) 7.9 H Glucose 235 H POC Glucose Salicylates < 0.3 L Acetaminophen 04/08/20 04/09/20 23:20 09:07 Hct [place] % (Auto) Glucose POC Glucose 119 H Salicylates Acetaminophen 5.0 L Assessment and Plan 70 yo male with htn, dm, stroke, p/w an episode of loss of consciousness. 1. Seizure - ordered EEG. 2. Syncope - ordered CTA head/neck; d/c cus; non-neurogenic workup per primary team. 3. Stroke - Aspirin 300 mg pr qday or Aspirin 325 mg PO qday; MRI Brain w/ wo contrast if no contraindications; further workup based on MRi findings. Chandra Nieves MD Neurology
[2020-04-09] MEDS ORDERED: LORazepam 2 MG/ML VIAL IV NR (10:24)
[2020-04-09] MEDS ORDERED: ZIPRASIDONE MESYLATE 20 MG VIAL IM SCH (10:30)
[2020-04-09] MEDS: ASPIRIN 325 MG TAB PO SCH (13:21)
[2020-04-09] MEDS ORDERED: ENALAPRILAT 2.5 MG/2 ML INJ IV NR (16:32)
[2020-04-09] MEDS: hydrALAZINE 25 MG TAB PO SCH ×2 (17:53→21:09)
[2020-04-09] MEDS: amLODIPine 10 MG TAB PO SCH (17:53)
[2020-04-10] MEDS: INSULIN REGULAR, HUMAN 100 UNIT/ML 3ML VIAL SUB-Q SCH ×5 (02:16→21:39)
[2020-04-10] MEDS ORDERED: hydrALAZINE 20 MG/1 ML INJ IV PRN (02:59)
[2020-04-10] MEDS: hydrALAZINE 25 MG TAB PO SCH ×3 (06:52→21:38)
[2020-04-10] MEDS: SODIUM CHLORIDE 0.9% 1000 ML 1,000 ML IV SCH ×2 (09:55→21:37)
[2020-04-10] MEDS: ASPIRIN 325 MG TAB PO SCH (09:56)
[2020-04-10] MEDS: amLODIPine 10 MG TAB PO SCH (09:56)
[2020-04-10 11:32] LABS: Basophils # (Auto) 0.1 K/mm3 (0.0-0.1); Basophils % (Auto) 0.7 % (0.0-1.8); Eosinophils # (Auto) 0.1 K/mm3 (0.0-0.4); Eosinophils % (Auto) 1.5 % (0.0-4.3); Hematocrit 35.9 % (35.5-45.6); Hemoglobin 12.2 gm/dl (11.8-15.2); Lymphocytes % (Auto) 31.4 % (13.4-35.0); Mean Corpuscular HGB Conc 34 % (32-34); Mean Corpuscular Volume 93 fl (84-94); Monocytes # (Auto) 0.8 K/mm3 (0.0-0.8); Monocytes % (Auto) 8.9 % (0.0-7.3); Platelet Count 254 K/mm3 (140-440); Red Blood Count 3.87 M/mm3 (3.65-5.03); Red Cell Distribution Width 14.7 % (13.2-15.2)
[2020-04-10 12:12] LABS: Alanine Aminotransferase 11 units/L (7-56); Albumin 3.6 g/dL (3.9-5); BUN/Creatinine Ratio 10; Blood Urea Nitrogen 9 mg/dL (9-20); Calcium 9.7 mg/dL (8.4-10.2); Hemolysis Index 28
--- NOTE | 2020-04-10 17:46 | Progress Note ---
Assessment and Plan Assessment and plan: Patient is a 70-year-old male with a medical history of hypertension, diabetes mellitus, CVA, dementia who was brought today emergency room by family as he reportedly passed out while he was having dinner. Per report, patient was not responsive for almost 5 minutes. Patient has no recollection of events. In the ER, he had a CT of the head performed that showed some cortical changes in the right frontal lobe. Neurology was consulted for further evaluation 04/10. Patient noted to have episodes of agitation yesterday and had to be placed on four-point restraints as he was getting aggressive towards staff. Security was called a few times. Telemetry shows sinus rhythm with APCs PROBLEMS 1. Syncopal episode -monitor on telemetry for now. Need to have an event monit or at discharge to evaluate for any arrhythmias. Cardiology follow up 2. Possible seizure versus CVA-EEG, MRI brain pending. Neurology evaluation appreciated 2. Benign hypertensioncontinue blood pressure medication 3. Dyslipidemiacontinue home medications. Lipid profile 4. Dementia -resume home medication-memantine 5. DM -check hemoglobin A1c 6. Agitation - Started on antipsychotics. Psych consult. DVT prophylaxis-Lovenox History Interval history: Patient seen and examined at bedside this morning. Patient graduated yesterday and had to be placed on four-point restraints. Patient started on antipsychotics. Plan to get psychiatry to see Hospitalist Physical - Physical exam Narrative exam: VITAL SIGNS: Reviewed. GENERAL: Awake and alert on response to questions HEAD: No signs of head trauma. EYES: Pupils are equal. Extraocular motions intact. EARS: Hearing grossly intact. MOUTH: Oropharynx is normal. NECK: No adenopathy, no JVD. CHEST: Chest with diminished breath sounds bilaterally. No wheezes, rales, or rhonchi. CARDIAC: Regular rate and rhythm. S1 and S2, without murmurs, gallops, or rub s. VASCULAR: No Edema. Peripheral pulses normal and equal in all extremities. ABDOMEN: Soft, non tender and non distended. No rebound or guarding, and no masses palpated. Bowel Sounds normal. MUSCULOSKELETAL: Good range of motion of all major joints. Extremities without clubbing, cyanosis or edema. NEUROLOGIC EXAM: Alert and oriented x3. No focal neurologic deficits SKIN: No obvious lesions - Constitutional Vitals: Temp Pulse Resp BP Pulse Ox 98.0 F 52 L 20 120/67 98 04/10/20 11:13 04/10/20 11:13 04/10/20 11:13 04/10/20 11:13 04/10/20 12:29 HEART Score - HEART Score Age: > 65 Risk factors: 1-2 risk factors Troponin: Troponin T < 0.010 ng/mL (0.00-0.029) 04/09/20 13:40 - Critical Actions Critical Actions: 0-3 pts:0.9-1.7%risk of adverse cardiac event.Candidate for discharge Results - Labs CBC & Chem 7: 04/10/20 10:52 04/10/20 10:52 Labs: Laboratory Last Values WBC 9.5 K/mm3 (4.5-11.0) 04/10/20 10:52 RBC 3.87 M/mm3 (3.65-5.03) 04/10/20 10:52 Hgb 12.2 gm/dl (11.8-15.2) 04/10/20 10:52 Hct 35.9 % (35.5-45.6) 04/10/20 10:52 MCV 93 fl (84-94) 04/10/20 10:52 MCH 32 pg (28-32) 04/10/20 10:52 MCHC 34 % (32-34) 04/10/20 10:52 RDW 14.7 % (13.2-15.2) 04/10/20 10:52 Plt Count 254 K/mm3 (140-440) 04/10/20 10:52 Lymph % (Auto) 31.4 % (13.4-35.0) 04/10/20 10:52 [place] % (Auto) 8.9 % (0.0-7.3) H 04/10/20 10:52 Eos % (Auto) 1.5 % (0.0-4.3) 04/10/20 10:52 Baso % (Auto) 0.7 % (0.0-1.8) 04/10/20 10:52 Lymph # (Auto) 3.0 K/mm3 (1.2-5.4) 04/10/20 10:52 [place] # (Auto) 0.8 K/mm3 (0.0-0.8) 04/10/20 10:52 Eos # (Auto) 0.1 K/mm3 (0.0-0.4) 04/10/20 10:52 Baso # (Auto) 0.1 K/mm3 (0.0-0.1) 04/10/20 10:52 Seg Neutrophils % 57.5 % (40.0-70.0) 04/10/20 10:52 Seg Neutrophils # 5.5 K/mm3 (1.8-7.7) 04/10/20 10:52 PT 12.8 Sec. (12.2-14.9) 04/09/20 03:46 INR 0.94 (0.87-1.13) 04/09/20 03:46 APTT 29.2 Sec. (24.2-36.6) 04/09/20 03:46 Thrombin Time 16.3 Sec. (15.1-19.6) 04/09/20 03:46 Sodium 144 mmol/L (137-145) 04/10/20 10:52 Potassium 3.4 mmol/L (3.6-5.0) L D 04/10/20 10:52 Chloride 104.8 mmol/L (98-107) 04/10/20 10:52 Carbon Dioxide 29 mmol/L (22-30) 04/10/20 10:52 Anion Gap 14 mmol/L 04/10/20 10:52 BUN 9 mg/dL (9-20) 04/10/20 10:52 Creatinine 0.9 mg/dL (0.8-1.3) 04/10/20 10:52 Estimated GFR > 60 ml/min 04/10/20 10:52 BUN/Creatinine Ratio 10 % 04/10/20 10:52 Glucose 91 mg/dL (75-100) 04/10/20 10:52 POC Glucose 100 mg/dL (70-105) 04/10/20 12:03 Calcium 9.7 mg/dL (8.4-10.2) 04/10/20 10:52 Magnesium 2.20 mg/dL (1.7-2.3) 04/08/20 23:20 Total Bilirubin 0.90 mg/dL (0.1-1.2) 04/10/20 10:52 AST 18 units/L (5-40) 04/10/20 10:52 ALT 11 units/L (7-56) 04/10/20 10:52 Alkaline Phosphatase 68 units/L (35-129) 04/10/20 10:52 Total Creatine Kinase 66 units/L (55-170) 04/09/20 03:46 CK-MB (CK-2) 1.4 ng/mL (0.0-4.0) 04/09/20 03:46 CK-MB (CK-2) Rel Index 2.1 (0-4) 04/09/20 03:46 Troponin T < 0.010 ng/mL (0.00-0.029) 04/09/20 13:40 Total Protein 6.9 g/dL (6.3-8.2) 04/10/20 10:52 Albumin 3.6 g/dL (3.9-5) L 04/10/20 10:52 Albumin/Globulin Ratio 1.1 % 04/10/20 10:52 TSH 1.380 mlU/mL (0.270-4.200) 04/08/20 23:20 Salicylates < 0.3 mg/dL (2.8-20.0) L 04/08/20 23:20 Acetaminophen 5.0 ug/mL (10.0-30.0) L 04/08/20 23:20 Collazo/IV: Voiding Method Condom Catheter IV Catheter Type [Right INT / Saline Lock Antecubital] Active Medications - Current Medications Current Medications: Generic Name Dose Route Start Last Admin Trade Name Freq PRN Reason Stop Dose Admin Amlodipine Besylate 10 mg 04/09/20 17:00 04/10/20 09:56 Amlodipine PO 10 mg QDAY BENJAMIN Administration Aspirin 325 mg 04/09/20 10:00 04/10/20 09:56 Aspirin PO 325 mg QDAY BENJAMIN Administration Dextrose 0 ml 04/09/20 05:35 D50w (25gm) Syringe IV Q30MIN PRN Hypoglycemia Protocol Hydralazine HCl 50 mg 04/09/20 17:00 04/10/20 15:00 Apresoline PO 50 mg Q8HR BENJAMIN Administration Hydralazine HCl 20 mg 04/10/20 02:59 Apresoline IV Q6H PRN Hypertension Sodium Chloride 1,000 mls @ 75 mls/hr 04/09/20 05:45 04/10/20 09:55 Nacl 0.9% 1000 Ml IV 75 mls/hr DIRECT BENJAMIN Administration Insulin Human Regular 0 unit 04/09/20 07:30 04/10/20 17:19 Humulin R SUB-Q Not Given AC BENJAMIN Protocol Insulin Human Regular 0 unit 04/09/20 22:00 04/10/20 02:16 Humulin R SUB-Q Not Given Q BENJAMIN Protocol Olanzapine 2.5 mg 04/10/20 11:00 04/10/20 10:12 Zyprexa PO 2.5 mg BID BENJAMIN Administration
[2020-04-10] MEDS: MEMANTINE 10 MG TAB PO SCH (18:30)
[2020-04-11 05:50] LABS: Chol/HDL Ratio 2.56 %
[2020-04-11] MEDS: hydrALAZINE 25 MG TAB PO SCH ×3 (06:28→21:19)
[2020-04-11] MEDS: INSULIN REGULAR, HUMAN 100 UNIT/ML 3ML VIAL SUB-Q SCH ×4 (07:58→22:46)
[2020-04-11] MEDS: amLODIPine 10 MG TAB PO SCH (10:57)
[2020-04-11] MEDS: ASPIRIN 325 MG TAB PO SCH (10:58)
[2020-04-11] MEDS: MEMANTINE 10 MG TAB PO SCH (10:59)
--- NOTE | 2020-04-11 12:41 | Consultation ---
History of Present Illness - Reason for Consult Consult date: 04/11/20 Reason for consult: agitation - Chief Complaint Chief complaint: Passed out - History of Present Psychiatric Illness Floyd Brian is 70y/o male, who was admitted for jerky movements. The patient also became aggressive. During my interview with the patient, he was lying in bed. He is calm and cooperative. He is confused. He is a poor historian and unable to give any insight or history into what's going on. He says he's "fine" when asked. The patient denies SI/HI or hallucinations of any kind. PAST PSYCHIATRIC HISTORY: Diagnoses: Suicide attempts or Self-harm behavior: denies Prior psychiatric hospitalizations: Denies Substance Abuse history: Nicotine Previous psychiatric medications tried: Could not recall Outpatient treatment: Denies PAST MEDICAL HISTORY: None reported Family Psychiatric History: None reported or documented SOCIAL HISTORY Marital Status: Single Living Arrangements: caregiver Employment Status: disabled Access to guns/weapons: None reported Education: high school History of Abuse: Denies Legal History: Denies REVIEW OF SYSTEMS Constitutional: Negative for weight loss ENT: Negative for stridor Respiratory: Negative for cough or hemoptysis All other systems reviewed and are negative MENTAL STATUS EXAMINATION General Appearance and Behavior: Age appropriate, good hygiene, wearing appropriate clothes, fair eye contact Cooperation: Participating/engaged Psychomotor Behavior: Psychomotor normal Mood: "fine" Affect and affective range: congruent with stated mood Thought Process: goal directed Thought Content: denies hallucinations Speech: Normal rate and tone Intellectual Functioning: Average Suicidal Ideation: SI Homicidal Ideation: Denies HI Hallucinations: Denies Delusions: None elicited Insight and Judgment: Limited insight and judgment Memory: Impaired Orientation: Alert, oriented Assessment and Plan (1)Acute Agitation Current Visit: Yes Status: Acute RECOMMENDATIONS MEDICATIONS: Continue olanzapine 2.5mg po BID Start Geodon 10mg IM q4h prn agitation Risks, benefits and alternatives of medications discussed with the patient, questions answered and consent obtained from patient. PSYCHOTHERAPY: Supportive psychotherapy provided MEDICAL: Per primary team DELIRIUM PRECAUTIONS: Please re-orient patient frequently, keep lights on during the day, and minimize benzodiazepines and opiates as these medications could worsen patient's confusion. EDUCATION ASSISTANT: Defer to primary DISPOSITION: TBD Will follow. Thank you for the consult. Please contact with any questions and/or concerns. Medications and Allergies Allergies Allergy/AdvReac Type Severity Reaction Status Date / Time No Known Allergies Allergy Verified 09/19/14 17:12 Home Medications Medication Instructions Recorded Confirmed Last Taken Type Aspirin 325 mg PO QDAY #30 tablet 09/23/14 04/09/20 Unknown Rx Simvastatin (Nf) [Zocor TAB] 20 mg PO QHS #30 tablet 09/23/14 04/09/20 Unknown Rx amLODIPine 10 mg PO QDAY #30 tablet 09/23/14 04/09/20 Unknown Rx lisinopriL [Zestril TAB] 10 mg PO QDAY #30 tablet 09/23/14 04/09/20 Unknown Rx Memantine/Donepezil (Nf) [Namzaric 1 cap PO DAILY 04/09/20 04/09/20 Unknown History 28 mg-10 mg (Nf)] Naproxen [EC-Naproxen] 500 mg PO BID PRN 04/09/20 04/09/20 Unknown History Sertraline [Zoloft] 50 mg PO QDAY 04/09/20 04/09/20 Unknown History Active Meds: Active Medications Amlodipine Besylate (Amlodipine) 10 mg PO QDAY [facility] Last Admin: 04/11/20 10:57 Dose: Not Given Documented by: Aspirin (Aspirin) 325 mg PO QDAY [facility] Last Admin: 04/11/20 10:58 Dose: Not Given Documented by: Dextrose (D50w (25gm) Syringe) 0 ml IV Q30MIN PRN; Protocol PRN Reason: Hypoglycemia Hydralazine HCl (Apresoline) 50 mg PO Q8HR BENJAMIN Last Admin: 04/11/20 06:28 Dose: Not Given Documented by: Hydralazine HCl (Apresoline) 20 mg IV Q6H PRN PRN Reason: Hypertension Last Admin: 04/11/20 05:31 Dose: 20 mg Documented by: Sodium Chloride (Nacl 0.9% 1000 Ml) 1,000 mls @ 75 mls/hr IV DIRECT BENJAMIN Last Admin: 04/10/20 21:37 Dose: 75 mls/hr Documented by: Insulin Human Regular (Humulin R) 0 unit SUB-Q AC BENJAMIN; Protocol Last Admin: 04/11/20 07:58 Dose: Not Given Documented by: Insulin Human Regular (Humulin R) 0 unit SUB-Q QHS [facility]; Protocol Last Admin: 04/10/20 21:39 Dose: Not Given Documented by: Memantine (Memantine) 10 mg PO DAILY [facility] Last Admin: 04/11/20 10:59 Dose: Not Given Documented by: Olanzapine (Zyprexa) 2.5 mg PO BID [facility] Last Admin: 04/11/20 10:59 Dose: Not Given Documented by: Mental Status Exam - Vital signs Last Vital Signs Temp 97.4 F L 04/11/20 09:47 Pulse 70 04/11/20 09:47 Resp 18 04/11/20 09:47 BP 105/51 04/11/20 09:47 Pulse Ox 100 04/11/20 09:47 Results Result Diagrams: 04/10/20 10:52 04/10/20 10:52 Abnormal lab results 04/11/20 Range/Units 04:25 Cholesterol 203 H (50-199) mg/dL HDL Cholesterol 79 H (40-59) mg/dL All other labs normal.
--- NOTE | 2020-04-11 13:56 | Progress Note ---
Assessment and Plan Assessment and plan: Patient is a 70-year-old male with a medical history of hypertension, diabetes mellitus, CVA, dementia who was brought today emergency room by family as he reportedly passed out while he was having dinner. Per report, patient was not responsive for almost 5 minutes. Patient has no recollection of events. In the ER, he had a CT of the head performed that showed some cortical changes in the right frontal lobe. Neurology was consulted for further evaluation 04/10. Patient noted to have episodes of agitation yesterday and had to be placed on four-point restraints as he was getting aggressive towards staff. Security was called a few times. Telemetry shows sinus rhythm with APCs PROBLEMS 1. Syncopal episode -monitor on telemetry for now. Need to have an event monit or at discharge to evaluate for any arrhythmias. Cardiology follow up 2. Possible seizure versus CVA-CTA head and neck, EEG, MRI brain pending. Neurology evaluation appreciated 2. Benign hypertensioncontinue blood pressure medication 3. Dyslipidemiacontinue home medications. Lipid profile 4. Dementia -resume home medication-memantine 5. DM -check hemoglobin A1c 6. Agitation -continue Zyprexa twice daily. Psychiatry evaluation appreciated DVT prophylaxis-Lovenox History Interval history: Patient seen and examined at bedside this morning. Patient is less agitated this morning. He was started on Zyprexa 2.5 mg twice daily since yesterday. Has been seen by psychiatry. Still awaiting MRI brain, EEG, CTA head and neck. No seizures noted since admission Hospitalist Physical - Physical exam Narrative exam: VITAL SIGNS: Reviewed. GENERAL: Awake and alert on response to questions HEAD: No signs of head trauma. EYES: Pupils are equal. Extraocular motions intact. EARS: Hearing grossly intact. MOUTH: Oropharynx is normal. NECK: No adenopathy, no JVD. CHEST: Chest with diminished breath sounds bilaterally. No wheezes, rales, or rhonchi. CARDIAC: Regular rate and rhythm. S1 and S2, without murmurs, gallops, or rubs. VASCULAR: No Edema. Peripheral pulses normal and equal in all extremities. ABDOMEN: Soft, non tender and non distended. No rebound or guarding, and no masses palpated. Bowel Sounds normal. MUSCULOSKELETAL: Good range of motion of all major joints. Extremities without clubbing, cyanosis or edema. NEUROLOGIC EXAM: Alert and oriented x3. No focal neurologic deficits SKIN: No obvious lesions - Constitutional Vitals: Temp Pulse Resp BP Pulse Ox 97.4 F L 70 18 105/51 100 04/11/20 09:47 04/11/20 09:47 04/11/20 09:47 04/11/20 09:47 04/11/20 09:47 General appearance: Present: no acute distress HEART Score - HEART Score Age: > 65 Risk factors: 1-2 risk factors Troponin: Troponin T < 0.010 ng/mL (0.00-0.029) 04/09/20 13:40 - Critical Actions Critical Actions: 0-3 pts:0.9-1.7%risk of adverse cardiac event.Candidate for discharge Results - Labs CBC & Chem 7: 04/10/20 10:52 04/10/20 10:52 Labs: Laboratory Last Values WBC 9.5 K/mm3 (4.5-11.0) 04/10/20 10:52 RBC 3.87 M/mm3 (3.65-5.03) 04/10/20 10:52 Hgb 12.2 gm/dl (11.8-15.2) 04/10/20 10:52 Hct 35.9 % (35.5-45.6) 04/10/20 10:52 MCV 93 fl (84-94) 04/10/20 10:52 MCH 32 pg (28-32) 04/10/20 10:52 MCHC 34 % (32-34) 04/10/20 10:52 RDW 14.7 % (13.2-15.2) 04/10/20 10:52 Plt Count 254 K/mm3 (140-440) 04/10/20 10:52 Lymph % (Auto) 31.4 % (13.4-35.0) 04/10/20 10:52 [place] % (Auto) 8.9 % (0.0-7.3) H 04/10/20 10:52 Eos % (Auto) 1.5 % (0.0-4.3) 04/10/20 10:52 Baso % (Auto) 0.7 % (0.0-1.8) 04/10/20 10:52 Lymph # (Auto) 3.0 K/mm3 (1.2-5.4) 04/10/20 10:52 [place] # (Auto) 0.8 K/mm3 (0.0-0.8) 04/10/20 10:52 Eos # (Auto) 0.1 K/mm3 (0.0-0.4) 04/10/20 10:52 Baso # (Auto) 0.1 K/mm3 (0.0-0.1) 04/10/20 10:52 Seg Neutrophils % 57.5 % (40.0-70.0) 04/10/20 10:52 Seg Neutrophils # 5.5 K/mm3 (1.8-7.7) 04/10/20 10:52 PT 12.8 Sec. (12.2-14.9) 04/09/20 03:46 INR 0.94 (0.87-1.13) 04/09/20 03:46 APTT 29.2 Sec. (24.2-36.6) 04/09/20 03:46 Thrombin Time 16.3 Sec. (15.1-19.6) 04/09/20 03:46 Sodium 144 mmol/L (137-145) 04/10/20 10:52 Potassium 3.4 mmol/L (3.6-5.0) L D 04/10/20 10:52 Chloride 104.8 mmol/L (98-107) 04/10/20 10:52 Carbon Dioxide 29 mmol/L (22-30) 04/10/20 10:52 Anion Gap 14 mmol/L 04/10/20 10:52 BUN 9 mg/dL (9-20) 04/10/20 10:52 Creatinine 0.9 mg/dL (0.8-1.3) 04/10/20 10:52 Estimated GFR > 60 ml/min 04/10/20 10:52 BUN/Creatinine Ratio 10 % 04/10/20 10:52 Glucose 91 mg/dL (75-100) 04/10/20 10:52 POC Glucose 134 mg/dL (70-105) H 04/11/20 13:07 Calcium 9.7 mg/dL (8.4-10.2) 04/10/20 10:52 Magnesium 2.20 mg/dL (1.7-2.3) 04/08/20 23:20 Total Bilirubin 0.90 mg/dL (0.1-1.2) 04/10/20 10:52 AST 18 units/L (5-40) 04/10/20 10:52 ALT 11 units/L (7-56) 04/10/20 10:52 Alkaline Phosphatase 68 units/L (35-129) 04/10/20 10:52 Total Creatine Kinase 66 units/L (55-170) 04/09/20 03:46 CK-MB (CK-2) 1.4 ng/mL (0.0-4.0) 04/09/20 03:46 CK-MB (CK-2) Rel Index 2.1 (0-4) 04/09/20 03:46 Troponin T < 0.010 ng/mL (0.00-0.029) 04/09/20 13:40 Total Protein 6.9 g/dL (6.3-8.2) 04/10/20 10:52 Albumin 3.6 g/dL (3.9-5) L 04/10/20 10:52 Albumin/Globulin Ratio 1.1 % 04/10/20 10:52 Triglycerides 72 mg/dL (2-149) 04/11/20 04:25 Cholesterol 203 mg/dL (50-199) H 04/11/20 04:25 LDL Cholesterol Direct 119 mg/dL (50-130) 04/11/20 04:25 HDL Cholesterol 79 mg/dL (40-59) H 04/11/20 04:25 Cholesterol/HDL Ratio 2.56 % 04/11/20 04:25 TSH 1.380 mlU/mL (0.270-4.200) 04/08/20 23:20 Salicylates < 0.3 mg/dL (2.8-20.0) L 04/08/20 23:20 Acetaminophen 5.0 ug/mL (10.0-30.0) L 04/08/20 23:20 - Diagnostic Impressions Diagnostic Impressions: Echocardiogram 04/09/20 05:27 Transthoracic Echocardiogram Indication: Syncope BP: 173/85 HR: 63 Conclusions *Normal LV size and systolic function. *The estimated ejection fraction is 60-65%. *Mild concentric left ventricular hypertrophy is observed. *There is trace of mitral regurgitation. *There is trace of aortic regurgitation. *There is trace tricuspid regurgitation. Findings Left Ventricle: The left ventricular chamber size is normal. Mild concentric left ventricular hypertrophy is observed. Global left ventricular systolic function is normal. The estimated ejection fraction is 60-65%. Left Atrium: The left atrial chamber size is normal. Right Ventricle: The right ventricular cavity size is normal. Right Atrium: The right atrial cavity size is normal. Aortic Valve: The aortic valve is trileaflet. The aortic valve leaflets are mildly thickened. There is trace of aortic regurgitation. There is no evidence of aortic stenosis. Mitral Valve: The mitral valve leaflets are mildly thickened. There is trace of mitral regurgitation. There is no evidence of mitral stenosis. Tricuspid Valve: There is trace tricuspid regurgitation. No pulmonary hypertension is noted. Pulmonic Valve: There is trace pulmonic regurgitation. Pericardium: There is no pericardial effusion. Aorta: There is no dilatation of the aortic root. Venous: The inferior vena cava appears normal in size. Measurements Chambers 2D Name Value Normal Range IVSd (2D) 0.87 cm (0.6 - 1.1) LVPWd (2D) 0.86 cm (0.6 - 1.1) LVIDd (2D) 4.05 cm (3.7 - 5.6) LVIDs (2D) 2.79 cm (2 - 3.8) LV FS (2D) 30.98 % - EF Teichholz (2D) 59.19 % - Ao root diameter (2D) 3.25 cm (2 - 3.7) Volumes/Mass Name Value Normal Range LA ESV SP 4CH (A/L) 13.5 ml - LA ESV SP 2CH (A/L) 21.42 ml - LA ESV BP (A/L) 18.77 ml - LA ESV BP (A/L) index 8.98 ml/m2 - LA ESV SP 4CH (MOD) 11.92 ml - LA ESV SP 2CH (MOD) 21.16 ml - LA ESV BP (MOD) 17.29 ml - LA ESV BP (MOD) index 8.27 ml/m2 - Diastolic/Systolic Function Name Value Normal Range MV E-wave Vmax 0.6 m/sec - MV deceleration time 258.19 msec - MV A-wave Vmax 0.83 m/sec - MV E:A ratio 0.73 ratio - Aortic Valve Name Value Normal Range AV Vmax 1.39 m/sec - AV VTI 28.77 cm - AV peak gradient 7.67 mmHg - AV mean gradient 4.18 mmHg - LVOT diameter 2.04 cm - LVOT Vmax 1.22 m/sec - LVOT VTI 23.64 cm - LVOT peak gradient 5.93 mmHg - LVOT mean gradient 3.31 mmHg - SV LVOT 77.33 ml - VALERIE (continuity Vmax) 2.87 cm2 - VALERIE (continuity VTI) 2.69 cm2 - Pulmonic Valve/Qp:Qs Name Value Normal Range PV acceleration time 91.34 msec - Collazo/IV: Voiding Method Condom Catheter IV Catheter Type [Right INT / Saline Lock Antecubital] Active Medications - Current Medications Current Medications: Generic Name Dose Route Start Last Admin Trade Name Freq PRN Reason Stop Dose Admin Amlodipine Besylate 10 mg 04/09/20 17:00 04/11/20 10:57 Amlodipine PO Not Given QDAY BENJAMIN Aspirin 325 mg 04/09/20 10:00 04/11/20 10:58 Aspirin PO Not Given QDAY [facility] Dextrose 0 ml 04/09/20 05:35 D50w (25gm) Syringe IV Q30MIN PRN Hypoglycemia Protocol Hydralazine HCl 50 mg 04/09/20 17:00 04/11/20 13:38 Apresoline PO Not Given Q8HR BENJAMIN Hydralazine HCl 20 mg 04/10/20 02:59 04/11/20 05:31 Apresoline IV 20 mg Q6H PRN Administration Hypertension Sodium Chloride 1,000 mls @ 75 mls/hr 04/09/20 05:45 04/10/20 21:37 Nacl 0.9% 1000 Ml IV 75 mls/hr DIRECT BENJAMIN Administration Insulin Human Regular 0 unit 04/09/20 07:30 04/11/20 13:38 Humulin R SUB-Q Not Given AC [facility] Protocol Insulin Human Regular 0 unit 04/09/20 22:00 04/10/20 21:39 Humulin R SUB-Q Not Given QHS [facility] Protocol Memantine 10 mg 04/10/20 18:00 04/11/20 10:59 Memantine PO Not Given DAILY BENJAMIN Olanzapine 2.5 mg 04/10/20 11:00 04/11/20 10:59 Zyprexa PO Not Given BID BENJAMIN Ziprasidone 10 mg 04/11/20 14:00 Geodon IM Q4H PRN Agitation
[2020-04-11] MEDS ORDERED: WATER FOR INJ Sterile (PF) 0 ML ONE (16:08)
[2020-04-11] MEDS: SODIUM CHLORIDE 0.9% 1000 ML 1,000 ML IV SCH (16:12)
[2020-04-12] MEDS: hydrALAZINE 25 MG TAB PO SCH ×3 (05:23→21:07)
[2020-04-12] MEDS: SODIUM CHLORIDE 0.9% 1000 ML 1,000 ML IV SCH (07:27)
[2020-04-12 08:19] LABS: Alanine Aminotransferase 11 units/L (7-56); Albumin 3.7 g/dL (3.9-5); BUN/Creatinine Ratio 12; Blood Urea Nitrogen 11 mg/dL (9-20); Calcium 9.5 mg/dL (8.4-10.2); Hemolysis Index 3
[2020-04-12] MEDS: INSULIN REGULAR, HUMAN 100 UNIT/ML 3ML VIAL SUB-Q SCH ×4 (09:50→22:43)
[2020-04-12] MEDS: ASPIRIN 325 MG TAB PO SCH (09:56)
[2020-04-12] MEDS: MEMANTINE 10 MG TAB PO SCH (09:56)
[2020-04-12] MEDS: amLODIPine 10 MG TAB PO SCH (09:56)
[2020-04-12] MEDS ORDERED: POTASSIUM CHLORIDE ER 20 MEQ TAB PO ONE (11:23)
--- NOTE | 2020-04-12 11:26 | Progress Note ---
Assessment and Plan Assessment and plan: Patient is a 70-year-old male with a medical history of hypertension, diabetes mellitus, CVA, dementia who was brought today emergency room by family as he reportedly passed out while he was having dinner. Per report, patient was not responsive for almost 5 minutes. Patient has no recollection of events. In the ER, he had a CT of the head performed that showed some cortical changes in the right frontal lobe. Neurology was consulted for further evaluation 04/10. Patient noted to have episodes of agitation yesterday and had to be placed on four-point restraints as he was getting aggressive towards staff. Security was called a few times. Telemetry shows sinus rhythm with APCs 04/11. Calmer after Zyprexa was initiated. Psychiatry evaluation. MRI brain, CT head and neck still pending. No EEG 04/12. He has no complaints today but is still calm. Currently on Zyprexa. Plan to get MRI brain, CTA head and neck and EEG today. Neurology following PROBLEMS 1. Syncopal episode -monitor on telemetry for now. Needs to have an event monitor at discharge to evaluate for any arrhythmias. Cardiology follow up 2. Possible seizure versus CVA-CTA head and neck, EEG, MRI brain pending. Neurology evaluation appreciated 2. Benign hypertensioncontinue blood pressure medication 3. Dyslipidemiacontinue home medications. 4. Dementia -resume home medication-memantine 5. Agitation -continue Zyprexa twice daily. Psychiatry evaluation appreciated DVT prophylaxis-Lovenox History Interval history: Patient seen and examined at bedside this morning. He has no complaints this morning. Currently on Zyprexa 2.5 mg twice daily. Has been seen by psychiatry. Still awaiting MRI brain, EEG, CTA head and neck. No seizures noted since admission Hospitalist Physical - Constitutional Vitals: Temp Pulse Resp BP Pulse Ox 98.5 F 68 21 171/85 99 04/12/20 07:38 04/12/20 10:00 04/12/20 10:00 04/12/20 09:56 04/12/20 10:00 General appearance: Present: no acute distress HEART Score - HEART Score Age: > 65 Risk factors: 1-2 risk factors Troponin: Troponin T < 0.010 ng/mL (0.00-0.029) 04/09/20 13:40 - Critical Actions Critical Actions: 0-3 pts:0.9-1.7%risk of adverse cardiac event.Candidate for discharge Results - Labs CBC & Chem 7: 04/10/20 10:52 04/12/20 06:51 Labs: Laboratory Last Values WBC 9.5 K/mm3 (4.5-11.0) 04/10/20 10:52 RBC 3.87 M/mm3 (3.65-5.03) 04/10/20 10:52 Hgb 12.2 gm/dl (11.8-15.2) 04/10/20 10:52 Hct 35.9 % (35.5-45.6) 04/10/20 10:52 MCV 93 fl (84-94) 04/10/20 10:52 MCH 32 pg (28-32) 04/10/20 10:52 MCHC 34 % (32-34) 04/10/20 10:52 RDW 14.7 % (13.2-15.2) 04/10/20 10:52 Plt Count 254 K/mm3 (140-440) 04/10/20 10:52 Lymph % (Auto) 31.4 % (13.4-35.0) 04/10/20 10:52 [place] % (Auto) 8.9 % (0.0-7.3) H 04/10/20 10:52 Eos % (Auto) 1.5 % (0.0-4.3) 04/10/20 10:52 Baso % (Auto) 0.7 % (0.0-1.8) 04/10/20 10:52 Lymph # (Auto) 3.0 K/mm3 (1.2-5.4) 04/10/20 10:52 [place] # (Auto) 0.8 K/mm3 (0.0-0.8) 04/10/20 10:52 Eos # (Auto) 0.1 K/mm3 (0.0-0.4) 04/10/20 10:52 Baso # (Auto) 0.1 K/mm3 (0.0-0.1) 04/10/20 10:52 Seg Neutrophils % 57.5 % (40.0-70.0) 04/10/20 10:52 Seg Neutrophils # 5.5 K/mm3 (1.8-7.7) 04/10/20 10:52 PT 12.8 Sec. (12.2-14.9) 04/09/20 03:46 INR 0.94 (0.87-1.13) 04/09/20 03:46 APTT 29.2 Sec. (24.2-36.6) 04/09/20 03:46 Thrombin Time 16.3 Sec. (15.1-19.6) 04/09/20 03:46 Sodium 145 mmol/L (137-145) 04/12/20 06:51 Potassium 3.5 mmol/L (3.6-5.0) L 04/12/20 06:51 Chloride 108.4 mmol/L (98-107) H 04/12/20 06:51 Carbon Dioxide 25 mmol/L (22-30) 04/12/20 06:51 Anion Gap 15 mmol/L 04/12/20 06:51 BUN 11 mg/dL (9-20) 04/12/20 06:51 Creatinine 0.9 mg/dL (0.8-1.3) 04/12/20 06:51 Estimated GFR > 60 ml/min 04/12/20 06:51 BUN/Creatinine Ratio 12 % 04/12/20 06:51 Glucose 130 mg/dL (75-100) H 04/12/20 06:51 POC Glucose 141 mg/dL (70-105) H 04/12/20 07:56 Hemoglobin A1c 5.5 % (4-6) 04/12/20 06:51 Calcium 9.5 mg/dL (8.4-10.2) 04/12/20 06:51 Magnesium 2.20 mg/dL (1.7-2.3) 04/08/20 23:20 Total Bilirubin 0.80 mg/dL (0.1-1.2) 04/12/20 06:51 AST 19 units/L (5-40) 04/12/20 06:51 ALT 11 units/L (7-56) 04/12/20 06:51 Alkaline Phosphatase 66 units/L (35-129) 04/12/20 06:51 Total Creatine Kinase 66 units/L (55-170) 04/09/20 03:46 CK-MB (CK-2) 1.4 ng/mL (0.0-4.0) 04/09/20 03:46 CK-MB (CK-2) Rel Index 2.1 (0-4) 04/09/20 03:46 Troponin T < 0.010 ng/mL (0.00-0.029) 04/09/20 13:40 Total Protein 7.0 g/dL (6.3-8.2) 04/12/20 06:51 Albumin 3.7 g/dL (3.9-5) L 04/12/20 06:51 Albumin/Globulin Ratio 1.1 % 04/12/20 06:51 Triglycerides 72 mg/dL (2-149) 04/11/20 04:25 Cholesterol 203 mg/dL (50-199) H 04/11/20 04:25 LDL Cholesterol Direct 119 mg/dL (50-130) 04/11/20 04:25 HDL Cholesterol 79 mg/dL (40-59) H 04/11/20 04:25 Cholesterol/HDL Ratio 2.56 % 04/11/20 04:25 TSH 1.380 mlU/mL (0.270-4.200) 04/08/20 23:20 Salicylates < 0.3 mg/dL (2.8-20.0) L 04/08/20 23:20 Acetaminophen 5.0 ug/mL (10.0-30.0) L 04/08/20 23:20 - Diagnostic Impressions Diagnostic Impressions: Echocardiogram 04/09/20 05:27 Transthoracic Echocardiogram Indication: Syncope BP: 173/85 HR: 63 Conclusions *Normal LV size and systolic function. *The estimated ejection fraction is 60-65%. *Mild concentric left ventricular hypertrophy is observed. *There is trace of mitral regurgitation. *There is trace of aortic regurgitation. *There is trace tricuspid regurgitation. Findings Left Ventricle: The left ventricular chamber size is normal. Mild concentric left ventricular hypertrophy is observed. Global left ventricular systolic function is normal. The estimated ejection fraction is 60-65%. Left Atrium: The left atrial chamber size is normal. Right Ventricle: The right ventricular cavity size is normal. Right Atrium: The right atrial cavity size is normal. Aortic Valve: The aortic valve is trileaflet. The aortic valve leaflets are mildly thickened. There is trace of aortic regurgitation. There is no evidence of aortic stenosis. Mitral Valve: The mitral valve leaflets are mildly thickened. There is trace of mitral regurgitation. There is no evidence of mitral stenosis. Tricuspid Valve: There is trace tricuspid regurgitation. No pulmonary hypertension is noted. Pulmonic Valve: There is trace pulmonic regurgitation. Pericardium: There is no pericardial effusion. Aorta: There is no dilatation of the aortic root. Venous: The inferior vena cava appears normal in size. Measurements Chambers 2D Name Value Normal Range IVSd (2D) 0.87 cm (0.6 - 1.1) LVPWd (2D) 0.86 cm (0.6 - 1.1) LVIDd (2D) 4.05 cm (3.7 - 5.6) LVIDs (2D) 2.79 cm (2 - 3.8) LV FS (2D) 30.98 % - EF Teichholz (2D) 59.19 % - Ao root diameter (2D) 3.25 cm (2 - 3.7) Volumes/Mass Name Value Normal Range LA ESV SP 4CH (A/L) 13.5 ml - LA ESV SP 2CH (A/L) 21.42 ml - LA ESV BP (A/L) 18.77 ml - LA ESV BP (A/L) index 8.98 ml/m2 - LA ESV SP 4CH (MOD) 11.92 ml - LA ESV SP 2CH (MOD) 21.16 ml - LA ESV BP (MOD) 17.29 ml - LA ESV BP (MOD) index 8.27 ml/m2 - Diastolic/Systolic Function Name Value Normal Range MV E-wave Vmax 0.6 m/sec - MV deceleration time 258.19 msec - MV A-wave Vmax 0.83 m/sec - MV E:A ratio 0.73 ratio - Aortic Valve Name Value Normal Range AV Vmax 1.39 m/sec - AV VTI 28.77 cm - AV peak gradient 7.67 mmHg - AV mean gradient 4.18 mmHg - LVOT diameter 2.04 cm - LVOT Vmax 1.22 m/sec - LVOT VTI 23.64 cm - LVOT peak gradient 5.93 mmHg - LVOT mean gradient 3.31 mmHg - SV LVOT 77.33 ml - VALERIE (continuity Vmax) 2.87 cm2 - VALERIE (continuity VTI) 2.69 cm2 - Pulmonic Valve/Qp:Qs Name Value Normal Range PV acceleration time 91.34 msec - Collazo/IV: Voiding Method Condom Catheter IV Catheter Type [Right INT / Saline Lock Antecubital] Active Medications - Current Medications Current Medications: Generic Name Dose Route Start Last Admin Trade Name Freq PRN Reason Stop Dose Admin Amlodipine Besylate 10 mg 04/09/20 17:00 04/12/20 09:56 Amlodipine PO 10 mg QDAY BENJAMIN Administration Aspirin 325 mg 04/09/20 10:00 04/12/20 09:56 Aspirin PO 325 mg QDAY BENJAMIN Administration Dextrose 0 ml 04/09/20 05:35 D50w (25gm) Syringe IV Q30MIN PRN Hypoglycemia Protocol Hydralazine HCl 50 mg 04/09/20 17:00 04/12/20 05:23 Apresoline PO 50 mg Q8HR BENJAMIN Administration Hydralazine HCl 20 mg 04/10/20 02:59 04/11/20 05:31 Apresoline IV 20 mg Q6H PRN Administration Hypertension Sodium Chloride 1,000 mls @ 75 mls/hr 04/09/20 05:45 04/12/20 07:27 Nacl 0.9% 1000 Ml IV 75 mls/hr DIRECT BENJAMIN Administration Insulin Human Regular 0 unit 04/09/20 07:30 04/12/20 09:50 Humulin R SUB-Q Not Given AC BENJAMIN Protocol Insulin Human Regular 0 unit 04/09/20 22:00 04/11/20 22:46 Humulin R SUB-Q 2 unit QHS BENJAMIN Administration Protocol Memantine 10 mg 04/10/20 18:00 04/12/20 09:56 Memantine PO 10 mg DAILY BENJAMIN Administration Olanzapine 2.5 mg 04/10/20 11:00 04/12/20 09:56 Zyprexa PO 2.5 mg BID BENJAMIN Administration Ziprasidone 10 mg 04/11/20 14:00 Geodon IM Q4H PRN Agitation
--- NOTE | 2020-04-12 11:56 | Progress Note ---
Subjective - Reason for Consult Consult date: 04/12/20 Reason for consult: aggression - Chief Complaint Chief complaint: During my interview with the patient today he is lying in bed awake. He is confused. He is in restraints. He is calm and cooperative. He says he's "fine" when asked. He says he "slept good" when asked. The patient denies SI/HI, stating "I don't want to hurt myself. Why would I hurt anybody?" As I'm leaving the room, the patient was speaking out loud. When I turned and asked him who was he speaking to he says, "that girl who was standing here." He stars looking around the room as if looking for someone. REVIEW OF SYSTEMS Constitutional: Negative for weight loss ENT: Negative for stridor Respiratory: Negative for cough or hemoptysis All other systems reviewed and are negative MENTAL STATUS EXAMINATION General Appearance and Behavior: Age appropriate, good hygiene, wearing appropriate clothes, fair eye contact Cooperation: Participating/engaged Psychomotor Behavior: Psychomotor normal Mood: "fine" Affect and affective range: congruent with stated mood Thought Process: goal directed Thought Content: denies hallucinations Speech: Normal rate and tone Intellectual Functioning: Average Suicidal Ideation: SI Homicidal Ideation: Denies HI Hallucinations: Denies Delusions: None elicited Insight and Judgment: Limited insight and judgment Memory: Impaired Orientation: Alert, oriented Assessment and Plan (1)Acute Agitation Current Visit: Yes Status: Acute RECOMMENDATIONS MEDICATIONS: Increased olanzapine 7.5mg po daily Risks, benefits and alternatives of medications discussed with the patient, questions answered and consent obtained from patient. PSYCHOTHERAPY: Supportive psychotherapy provided MEDICAL: Per primary team DELIRIUM PRECAUTIONS: Please re-orient patient frequently, keep lights on during the day, and minimize benzodiazepines and opiates as these medications could worsen patient's confusion. OBSTETRICS GYNECOLOGY MD: Defer to primary DISPOSITION: TBD Will follow. Thank you for the consult. Please contact with any questions and/or concerns. Mental Status Exam - Vital signs Last Vital Signs Temp 98.5 F 04/12/20 07:38 Pulse 68 04/12/20 10:00 Resp 21 04/12/20 10:00 BP 171/85 04/12/20 09:56 Pulse Ox 99 04/12/20 10:00
--- NOTE | 2020-04-12 16:32 | Cat Scan Report ---
CTA NECK WITH CONTRAST HISTORY: Stroke COMPARISON: None. TECHNIQUE: Routine CTA of the neck was performed. 3-D/MIP reformats were postprocessed. Percentage s tenosis is determined by direct quantitative measurements of diseased internal carotid artery diamete r compared with normal distal internal carotid artery reference segments or by criteria similar to NA SCET where applicable.All CT scans at this location are performed using CT dose reduction for ALARA b y means of automated exposure control CONTRAST: 100 ml of Omnipaque 350 FINDINGS: Aortic arch: No significant abnormality. Cervical vertebral arteries: No significant abnormality. Common carotid arteries: No significant abnormality. Carotid bifurcations: In the right proximal internal carotid artery, less than 20% stenoses at the or igin; left carotid bifurcation normal Cervical internal carotid arteries: No significant abnormality. Additional findings: None. IMPRESSION: 1. No significant abnormality. Signer Name: Miguel Bosch MD Signed: 04/12/2020 4:27 PM Workstation Name: [id number]
--- NOTE | 2020-04-12 16:43 | Cat Scan Report ---
CTA HEAD WITH CONTRAST HISTORY: Stroke COMPARISON: None. TECHNIQUE: Routine non-contrast CT Head, CTA of the head and post-contrast CT Head are performed. 3-D /MIP reformats postprocessed. All CT scans at this location are performed using CT dose reduction for ALARA by means of automated exposure control CONTRAST: 100 ml of Omnipaque 350 FINDINGS: CTA Head: Intracranial vertebral arteries: No significant abnormality. Basilar artery: Patent but moderate atheromatous changes; no significant stenoses Posterior cerebral arteries: No Significant abnormality Intracranial internal carotid arteries: Vascular calcification carotid siphons bilaterally Anterior cerebral arteries: Normal right anterior cerebral artery; stenotic origin of left anterior c erebral artery; Middle cerebral arteries: Metastatic changes in both middle cerebral arteries small v essel disease in the branches anterior and middle cerebral arteries Dural venous sinuses:Not optimally opacified. No significant abnormality. Additional findings: None. IMPRESSION: No large vessel occlusion; however, atheromatous changes in the branches of middle and anterior cereb ral arteries bilaterally; nonstenotic atheromatous changes in the basilar artery Signer Name: Miguel Bosch MD Signed: 04/12/2020 4:39 PM Workstation Name: [id number]
[2020-04-13] MEDS: hydrALAZINE 25 MG TAB PO SCH ×3 (05:46→21:15)
[2020-04-13] MEDS: INSULIN REGULAR, HUMAN 100 UNIT/ML 3ML VIAL SUB-Q SCH ×4 (08:43→21:15)
--- NOTE | 2020-04-13 10:44 | Progress Note ---
Assessment and Plan Assessment and plan: Patient is a 70-year-old male with a medical history of hypertension, diabetes mellitus, CVA, dementia who was brought today emergency room by family as he reportedly passed out while he was having dinner. Per report, patient was not responsive for almost 5 minutes. Patient has no recollection of events. In the ER, he had a CT of the head performed that showed some cortical changes in the right frontal lobe. Neurology was consulted for further evaluation 04/10. Patient noted to have episodes of agitation yesterday and had to be placed on four-point restraints as he was getting aggressive towards staff. Security was called a few times. Telemetry shows sinus rhythm with APCs 04/11. Calmer after Zyprexa was initiated. Psychiatry evaluation. MRI brain, CT head and neck still pending. No EEG 04/12. He has no complaints today but is still calm. Currently on Zyprexa. Plan to get MRI brain, CTA head and neck and EEG today. Neurology following 04/13. CTA head and neck is negative for significant occlusion or stenosis. MRI brain and EEG pending. PROBLEMS 1. Syncopal episode -monitor on telemetry for now. Needs to have an event monitor at discharge to evaluate for any arrhythmias. Cardiology follow up 2. Possible seizure versus CVA-CTA head and neck negative. EEG and MRI brain pending. Neurology evaluation appreciated 2. Benign hypertensioncontinue blood pressure medication 3. Dyslipidemiacontinue home medications. 4. Dementia -Continue memantine 5. Agitation - Zyprexa dose increased. Psychiatry evaluation appreciated DVT prophylaxis-Lovenox Disposition - PT evaluation pending. History Interval history: Patient seen and examined at bedside this morning. He has no complaints this morning. Zyprexa dose increased to 7.5mg daily EEG and MRI pending CTA head and neck negative. No seizures noted since admission Awaiting PT Hospitalist Physical - Physical exam Narrative exam: VITAL SIGNS: Reviewed. GENERAL: Awake and alert on response to questions HEAD: No signs of head trauma. EYES: Pupils are equal. Extraocular motions intact. EARS: Hearing grossly intact. MOUTH: Oropharynx is normal. NECK: No adenopathy, no JVD. CHEST: Chest with diminished breath sounds bilaterally. No wheezes, rales, or rhonchi. CARDIAC: Regular rate and rhythm. S1 and S2, without murmurs, gallops, or rubs. VASCULAR: No Edema. Peripheral pulses normal and equal in all extremities. ABDOMEN: Soft, non tender and non distended. No rebound or guarding, and no masses palpated. Bowel Sounds normal. MUSCULOSKELETAL: Good range of motion of all major joints. Extremities without clubbing, cyanosis or edema. NEUROLOGIC EXAM: Alert and oriented x3. No focal neurologic deficits SKIN: No obvious lesions - Constitutional Vitals: Temp Pulse Resp BP Pulse Ox 98.8 F 86 18 109/68 98 04/13/20 07:22 04/13/20 08:55 04/13/20 08:15 04/13/20 07:22 04/13/20 08:15 HEART Score - HEART Score Age: > 65 Risk factors: 1-2 risk factors Troponin: Troponin T < 0.010 ng/mL (0.00-0.029) 04/09/20 13:40 - Critical Actions Critical Actions: 0-3 pts:0.9-1.7%risk of adverse cardiac event.Candidate for discharge Results - Labs CBC & Chem 7: 04/10/20 10:52 04/12/20 06:51 Labs: Laboratory Last Values WBC 9.5 K/mm3 (4.5-11.0) 04/10/20 10:52 RBC 3.87 M/mm3 (3.65-5.03) 04/10/20 10:52 Hgb 12.2 gm/dl (11.8-15.2) 04/10/20 10:52 Hct 35.9 % (35.5-45.6) 04/10/20 10:52 MCV 93 fl (84-94) 04/10/20 10:52 MCH 32 pg (28-32) 04/10/20 10:52 MCHC 34 % (32-34) 04/10/20 10:52 RDW 14.7 % (13.2-15.2) 04/10/20 10:52 Plt Count 254 K/mm3 (140-440) 04/10/20 10:52 Lymph % (Auto) 31.4 % (13.4-35.0) 04/10/20 10:52 [place] % (Auto) 8.9 % (0.0-7.3) H 04/10/20 10:52 Eos % (Auto) 1.5 % (0.0-4.3) 04/10/20 10:52 Baso % (Auto) 0.7 % (0.0-1.8) 04/10/20 10:52 Lymph # (Auto) 3.0 K/mm3 (1.2-5.4) 04/10/20 10:52 [place] # (Auto) 0.8 K/mm3 (0.0-0.8) 04/10/20 10:52 Eos # (Auto) 0.1 K/mm3 (0.0-0.4) 04/10/20 10:52 Baso # (Auto) 0.1 K/mm3 (0.0-0.1) 04/10/20 10:52 Seg Neutrophils % 57.5 % (40.0-70.0) 04/10/20 10:52 Seg Neutrophils # 5.5 K/mm3 (1.8-7.7) 04/10/20 10:52 PT 12.8 Sec. (12.2-14.9) 04/09/20 03:46 INR 0.94 (0.87-1.13) 04/09/20 03:46 APTT 29.2 Sec. (24.2-36.6) 04/09/20 03:46 Thrombin Time 16.3 Sec. (15.1-19.6) 04/09/20 03:46 Sodium 145 mmol/L (137-145) 04/12/20 06:51 Potassium 3.5 mmol/L (3.6-5.0) L 04/12/20 06:51 Chloride 108.4 mmol/L (98-107) H 04/12/20 06:51 Carbon Dioxide 25 mmol/L (22-30) 04/12/20 06:51 Anion Gap 15 mmol/L 04/12/20 06:51 BUN 11 mg/dL (9-20) 04/12/20 06:51 Creatinine 0.9 mg/dL (0.8-1.3) 04/12/20 06:51 Estimated GFR > 60 ml/min 04/12/20 06:51 BUN/Creatinine Ratio 12 % 04/12/20 06:51 Glucose 130 mg/dL (75-100) H 04/12/20 06:51 POC Glucose 172 mg/dL (70-105) H 04/13/20 07:49 Hemoglobin A1c 5.5 % (4-6) 04/12/20 06:51 Calcium 9.5 mg/dL (8.4-10.2) 04/12/20 06:51 Magnesium 2.20 mg/dL (1.7-2.3) 04/08/20 23:20 Total Bilirubin 0.80 mg/dL (0.1-1.2) 04/12/20 06:51 AST 19 units/L (5-40) 04/12/20 06:51 ALT 11 units/L (7-56) 04/12/20 06:51 Alkaline Phosphatase 66 units/L (35-129) 04/12/20 06:51 Total Creatine Kinase 66 units/L (55-170) 04/09/20 03:46 CK-MB (CK-2) 1.4 ng/mL (0.0-4.0) 04/09/20 03:46 CK-MB (CK-2) Rel Index 2.1 (0-4) 04/09/20 03:46 Troponin T < 0.010 ng/mL (0.00-0.029) 04/09/20 13:40 Total Protein 7.0 g/dL (6.3-8.2) 04/12/20 06:51 Albumin 3.7 g/dL (3.9-5) L 04/12/20 06:51 Albumin/Globulin Ratio 1.1 % 04/12/20 06:51 Triglycerides 72 mg/dL (2-149) 04/11/20 04:25 Cholesterol 203 mg/dL (50-199) H 04/11/20 04:25 LDL Cholesterol Direct 119 mg/dL (50-130) 04/11/20 04:25 HDL Cholesterol 79 mg/dL (40-59) H 04/11/20 04:25 Cholesterol/HDL Ratio 2.56 % 04/11/20 04:25 TSH 1.380 mlU/mL (0.270-4.200) 04/08/20 23:20 Salicylates < 0.3 mg/dL (2.8-20.0) L 04/08/20 23:20 Acetaminophen 5.0 ug/mL (10.0-30.0) L 04/08/20 23:20 - Diagnostic Impressions Diagnostic Impressions: Echocardiogram 04/09/20 05:27 Transthoracic Echocardiogram Indication: Syncope BP: 173/85 HR: 63 Conclusions *Normal LV size and systolic function. *The estimated ejection fraction is 60-65%. *Mild concentric left ventricular hypertrophy is observed. *There is trace of mitral regurgitation. *There is trace of aortic regurgitation. *There is trace tricuspid regurgitation. Findings Left Ventricle: The left ventricular chamber size is normal. Mild concentric left ventricular hypertrophy is observed. Global left ventricular systolic function is normal. The estimated ejection fraction is 60-65%. Left Atrium: The left atrial chamber size is normal. Right Ventricle: The right ventricular cavity size is normal. Right Atrium: The right atrial cavity size is normal. Aortic Valve: The aortic valve is trileaflet. The aortic valve leaflets are mildly thickened. There is trace of aortic regurgitation. There is no evidence of aortic stenosis. Mitral Valve: The mitral valve leaflets are mildly thickened. There is trace of mitral regurgitation. There is no evidence of mitral stenosis. Tricuspid Valve: There is trace tricuspid regurgitation. No pulmonary hypertension is noted. Pulmonic Valve: There is trace pulmonic regurgitation. Pericardium: There is no pericardial effusion. Aorta: There is no dilatation of the aortic root. Venous: The inferior vena cava appears normal in size. Measurements Chambers 2D Name Value Normal Range IVSd (2D) 0.87 cm (0.6 - 1.1) LVPWd (2D) 0.86 cm (0.6 - 1.1) LVIDd (2D) 4.05 cm (3.7 - 5.6) LVIDs (2D) 2.79 cm (2 - 3.8) LV FS (2D) 30.98 % - EF Teichholz (2D) 59.19 % - Ao root diameter (2D) 3.25 cm (2 - 3.7) Volumes/Mass Name Value Normal Range LA ESV SP 4CH (A/L) 13.5 ml - LA ESV SP 2CH (A/L) 21.42 ml - LA ESV BP (A/L) 18.77 ml - LA ESV BP (A/L) index 8.98 ml/m2 - LA ESV SP 4CH (MOD) 11.92 ml - LA ESV SP 2CH (MOD) 21.16 ml - LA ESV BP (MOD) 17.29 ml - LA ESV BP (MOD) index 8.27 ml/m2 - Diastolic/Systolic Function Name Value Normal Range MV E-wave Vmax 0.6 m/sec - MV deceleration time 258.19 msec - MV A-wave Vmax 0.83 m/sec - MV E:A ratio 0.73 ratio - Aortic Valve Name Value Normal Range AV Vmax 1.39 m/sec - AV VTI 28.77 cm - AV peak gradient 7.67 mmHg - AV mean gradient 4.18 mmHg - LVOT diameter 2.04 cm - LVOT Vmax 1.22 m/sec - LVOT VTI 23.64 cm - LVOT peak gradient 5.93 mmHg - LVOT mean gradient 3.31 mmHg - SV LVOT 77.33 ml - VALERIE (continuity Vmax) 2.87 cm2 - VALERIE (continuity VTI) 2.69 cm2 - Pulmonic Valve/Qp:Qs Name Value Normal Range PV acceleration time 91.34 msec - Collazo/IV: Voiding Method Condom Catheter IV Catheter Type [Right INT / Saline Lock Antecubital] Active Medications - Current Medications Current Medications: Generic Name Dose Route Start Last Admin Trade Name Freq PRN Reason Stop Dose Admin Amlodipine Besylate 10 mg 04/09/20 17:00 04/12/20 09:56 Amlodipine PO 10 mg QDAY BENJAMIN Administration Aspirin 325 mg 04/09/20 10:00 04/12/20 09:56 Aspirin PO 325 mg QDAY BENJAMIN Administration Dextrose 0 ml 04/09/20 05:35 D50w (25gm) Syringe IV Q30MIN PRN Hypoglycemia Protocol Hydralazine HCl 50 mg 04/09/20 17:00 04/13/20 05:46 Apresoline PO 50 mg Q8HR BENJMAIN Administration Hydralazine HCl 20 mg 04/10/20 02:59 04/11/20 05:31 Apresoline IV 20 mg Q6H PRN Administration Hypertension Insulin Human Regular 0 unit 04/09/20 07:30 04/13/20 08:43 Humulin R SUB-Q 1 unit AC BENJAMIN Administration Protocol Insulin Human Regular 0 unit 04/09/20 22:00 04/12/20 22:43 Humulin R SUB-Q 1 unit QHS BENJAMIN Administration Protocol Memantine 10 mg 04/10/20 18:00 04/12/20 09:56 Memantine PO 10 mg DAILY BENJAMIN Administration Olanzapine 7.5 mg 04/13/20 10:00 Zyprexa PO QDAY BENJAMIN Ziprasidone 10 mg 04/11/20 14:00 Geodon IM Q4H PRN Agitation
[2020-04-13] MEDS: ASPIRIN 325 MG TAB PO SCH (11:04)
[2020-04-13] MEDS: amLODIPine 10 MG TAB PO SCH (11:04)
[2020-04-13] MEDS: MEMANTINE 10 MG TAB PO SCH (11:05)
--- NOTE | 2020-04-13 12:29 | Progress Note ---
Subjective - Reason for Consult Consult date: 04/13/20 Reason for consult: agitation - Chief Complaint Chief complaint: During my interview with the patient today he is lying in bed awake. He appears much better now. He is calm and cooperative. He is smiling. He is sitting up in bed. The sitter says he's much better and has been talking. She says she removed his restraints. The patient is getting ready to each lunch. He says "I am fine" when asked. When asking about hallucinating, the patient says "I don't see nothing. Nothing like that." He also denies SI/HI, stating "no, why would I want to hurt anybody." REVIEW OF SYSTEMS Constitutional: Negative for weight loss ENT: Negative for stridor Respiratory: Negative for cough or hemoptysis All other systems reviewed and are negative MENTAL STATUS EXAMINATION General Appearance and Behavior: Age appropriate, good hygiene, wearing appropriate clothes, fair eye contact, smiling, pleasant, calm and cooperative Cooperation: Participating/engaged Psychomotor Behavior: Psychomotor normal Mood: "fine" Affect and affective range: congruent with stated mood Thought Process: goal directed Thought Content: denies hallucinations Speech: Normal rate and tone Intellectual Functioning: Average Suicidal Ideation: Denies Homicidal Ideation: Denies Hallucinations: Denies Delusions: None elicited Insight and Judgment: Limited insight and judgment Memory: Impaired Orientation: Alert, oriented Assessment and Plan (1)Acute Agitation Current Visit: Yes Status: Acute RECOMMENDATIONS Scripts Olanzapine 7.5mg po daily Risks, benefits and alternatives of medications discussed with the patient, questions answered and consent obtained from patient. PSYCHOTHERAPY: Supportive psychotherapy provided MEDICAL: Per primary team DELIRIUM PRECAUTIONS: Please re-orient patient frequently, keep lights on during the day, and minimize benzodiazepines and opiates as these medications could worsen patient's confusion. [employer]: Defer to primary DISPOSITION: Do not recommend acute inpatient psychiatric treatment. The patient may discharge once he is medically cleared. The ecological risk assessor to give the patient outpatient resources The patient to follow up with outpatient psych/primary in 7 to 14 days upon discharge Will sign off. Thank you for this consult. Please contact with any questions and/or concerns. Mental Status Exam - Vital signs Last Vital Signs Temp 98.8 F 04/13/20 07:22 Pulse 86 04/13/20 08:55 Resp 18 04/13/20 08:15 BP 109/68 04/13/20 07:22 Pulse Ox 98 04/13/20 08:15
[2020-04-13] MEDS ORDERED: WATER FOR INJ Sterile (PF) 10 ML ONE (15:16)
[2020-04-13] MEDS: ZIPRASIDONE MESYLATE 20 MG VIAL IM PRN (15:21)
--- NOTE | 2020-04-13 17:13 | Magnetic Resonance Report ---
NONENHANCED AND CONTRAST-ENHANCED MR SCAN OF THE BRAIN: INDICATION / CLINICAL INFORMATION: CVA. TECHNIQUE: Multiplanar, multisequence MR images of the brain obtained. COMPARISON: CT scan of the head from 04/08/2020 FINDINGS: BRAIN / INTRACRANIAL CONTENTS: No acute ischemia, acute hemorrhage, mass effect, midline shift, or hy drocephalus. Chronic ischemic changes in the juan, periventricular white matter bilaterally, right centrum semiova le extending into og[place] radiata due to chronic small vessel disease. Chronic lacunae in both basal ganglia Multiple focal areas of susceptibility changes in both cerebral hemispheres; if there is history of h ypertension, these could be chronic microbleeds No enhancing parenchymal colon smooth symmetric uniform enhancement of the supratentorial meninges th is appears to be reactive CRANIOCERVICAL JUNCTION: No significant abnormality. VASCULAR FLOW-VOIDS: No significant abnormality. ORBITS: No significant abnormality of visualized orbits. SINUSES / MASTOIDS: Mucosal disease in the right maxillary sinus ADDITIONAL FINDINGS: None. IMPRESSION: No acute focal parenchymal lesion in the brain Signer Name: Miguel Bosch MD Signed: 04/13/2020 5:08 PM Workstation Name: [id number]
[2020-04-14] MEDS: hydrALAZINE 25 MG TAB PO SCH (06:13)
[2020-04-14] MEDS: INSULIN REGULAR, HUMAN 100 UNIT/ML 3ML VIAL SUB-Q SCH ×4 (09:24→21:38)
[2020-04-14] MEDS: ASPIRIN 325 MG TAB PO SCH (09:25)
[2020-04-14] MEDS: hydrALAZINE 100 MG TAB PO SCH ×3 (09:25→21:37)
[2020-04-14] MEDS: amLODIPine 10 MG TAB PO SCH (09:25)
[2020-04-14] MEDS: MEMANTINE 10 MG TAB PO SCH (09:28)
--- NOTE | 2020-04-14 17:59 | Progress Note ---
Assessment and Plan - Patient Problems (1) Syncope and collapse Current Visit: Yes Status: Acute Plan to address problem: 04/08 CT head shows decreasing to duration of the right frontal white matter and right posterior frontal lobe negro matter characteristic of ischemic changes which appears to be subacute or chronic, atrophy and microangiopathy, chronic lacunar infarcts in the right basal ganglia and left thalamus 04/12 CTA neck shows no significant abnormality with less than 20% stenosis in the right proximal internal carotid artery 04/12 CTA head shows no large vessel occlusion however atheromatous changes in the branches of the middle and anterior cerebral arteries bilaterally, none stenotic atheromatous changes in the basilar artery 04/13 MRI brain shows no acute parenchymal lesion in the brain 04/11 EEG interpretation shows some diffuse slowing which is compatible with mild diffuse encephalopathy, toxic/metabolic abnormality, diffuse degenerative changes of the brain, post ictal state etc. etc. clinical correlation is recomme nded. A repeat EEG may be appropriate at a later date 04/09 TTE shows estimated EF of 60 to 65%, mild concentric LVH, trace MR, trace AR, trace pulmonic regurgitation and trace TR PT consult recommends subacute rehab ASA and statin therapy Aspiration and fall precautions (2) Hypertension Current Visit: No Status: Chronic Plan to address problem: Resume home antihypertensive regimen Blood pressure monitor per protocol (3) Dementia Current Visit: Yes Status: Chronic Qualifiers: Dementia behavioral disturbance: with behavioral disturbance Plan to address problem: Psych consulted, patient recommendations Patient is currently on Zyprexa twice daily 04/14 psych has signed off Continue home memantime Supportive care Aspiration and fall precautions As needed Lilian (4) Dyslipidemia Current Visit: No Status: Chronic Plan to address problem: Continue home statin therapy (5) DVT prophylaxis Current Visit: No Status: Acute Plan to address problem: SCDs to bilateral extremities Lovenox subcu History Interval history: Patient is a 70-year-old male with a medical history of hypertension, diabetes mellitus, CVA, dementia who was brought to emergency room on 04/11 by family as he reportedly passed out while he was having dinner. Per report, patient was not responsive for almost 5 minutes. Patient has no recollection of events. In the ER, he had a CT of the head performed that showed some cortical changes in the right frontal lobe. Neurology was consulted for further evaluation. This morning upon evaluation patient is eating breakfast and he is able to tell me his name and his birthday. I spoke to his over the phone who states that the patient is always confused and that he is overly sedated in the hospital and would like to discharge him home. I explained that physical therapy was consulted and the recommendation was subacute rehab however the patient's would like to take the patient home and have home health physical therapy. Psych has signed off today. 04/10. Patient noted to have episodes of agitation yesterday and had to be placed on four-point restraints as he was getting aggressive towards staff. Security was called a few times. Telemetry shows sinus rhythm with APCs 04/11. Calmer after Zyprexa was initiated. Psychiatry evaluation. MRI brain, CT head and neck still pending. No EEG 04/12. He has no complaints today but is still calm. Currently on Zyprexa. Plan to get MRI brain, CTA head and neck and EEG today. Neurology following 04/13. CTA head and neck is negative for significant occlusion or stenosis. MRI brain and EEG pending. Hospitalist Physical - Constitutional Vitals: Temp Pulse Resp BP Pulse Ox 98.3 F 79 18 92/44 96 04/14/20 15:44 04/14/20 15:44 04/14/20 15:44 04/14/20 15:44 04/14/20 15:44 General appearance: Present: no acute distress - EENT Eyes: Present: PERRL, EOM intact ENT: hearing decreased, poor dentition - Neck Neck: Present: supple, normal ROM - Respiratory Respiratory effort: normal Respiratory: bilateral: CTA - Cardiovascular Rhythm: regular Heart Sounds: Present: S1 & S2. Absent: systolic murmur, diastolic murmur - Extremities Extremities: no ischemia, pulses intact, pulses symmetrical, No edema, normal temperature, normal color, Full ROM Peripheral Pulses: within normal limits - Abdominal General gastrointestinal: soft, non-tender, normal bowel sounds - Integumentary Integumentary: Present: clear, warm, dry - Psychiatric Psychiatric: cooperative - Neurologic Neurologic: CNII-XII intact, no focal deficits - Allied Health Allied health notes reviewed: nursing HEART Score - HEART Score Age: > 65 Risk factors: 1-2 risk factors Troponin: Troponin T < 0.010 ng/mL (0.00-0.029) 04/09/20 13:40 - Critical Actions Critical Actions: 0-3 pts:0.9-1.7%risk of adverse cardiac event.Candidate for discharge Results - Labs CBC & Chem 7: 04/10/20 10:52 04/12/20 06:51 Labs: Laboratory Last Values WBC 9.5 K/mm3 (4.5-11.0) 04/10/20 10:52 RBC 3.87 M/mm3 (3.65-5.03) 04/10/20 10:52 Hgb 12.2 gm/dl (11.8-15.2) 04/10/20 10:52 Hct 35.9 % (35.5-45.6) 04/10/20 10:52 MCV 93 fl (84-94) 04/10/20 10:52 MCH 32 pg (28-32) 04/10/20 10:52 MCHC 34 % (32-34) 04/10/20 10:52 RDW 14.7 % (13.2-15.2) 04/10/20 10:52 Plt Count 254 K/mm3 (140-440) 04/10/20 10:52 Lymph % (Auto) 31.4 % (13.4-35.0) 04/10/20 10:52 [place] % (Auto) 8.9 % (0.0-7.3) H 04/10/20 10:52 Eos % (Auto) 1.5 % (0.0-4.3) 04/10/20 10:52 Baso % (Auto) 0.7 % (0.0-1.8) 04/10/20 10:52 Lymph # (Auto) 3.0 K/mm3 (1.2-5.4) 04/10/20 10:52 [place] # (Auto) 0.8 K/mm3 (0.0-0.8) 04/10/20 10:52 Eos # (Auto) 0.1 K/mm3 (0.0-0.4) 04/10/20 10:52 Baso # (Auto) 0.1 K/mm3 (0.0-0.1) 04/10/20 10:52 Seg Neutrophils % 57.5 % (40.0-70.0) 04/10/20 10:52 Seg Neutrophils # 5.5 K/mm3 (1.8-7.7) 04/10/20 10:52 PT 12.8 Sec. (12.2-14.9) 04/09/20 03:46 INR 0.94 (0.87-1.13) 04/09/20 03:46 APTT 29.2 Sec. (24.2-36.6) 04/09/20 03:46 Thrombin Time 16.3 Sec. (15.1-19.6) 04/09/20 03:46 Sodium 145 mmol/L (137-145) 04/12/20 06:51 Potassium 3.5 mmol/L (3.6-5.0) L 04/12/20 06:51 Chloride 108.4 mmol/L (98-107) H 04/12/20 06:51 Carbon Dioxide 25 mmol/L (22-30) 04/12/20 06:51 Anion Gap 15 mmol/L 04/12/20 06:51 BUN 11 mg/dL (9-20) 04/12/20 06:51 Creatinine 0.9 mg/dL (0.8-1.3) 04/12/20 06:51 Estimated GFR > 60 ml/min 04/12/20 06:51 BUN/Creatinine Ratio 12 % 04/12/20 06:51 Glucose 130 mg/dL (75-100) H 04/12/20 06:51 POC Glucose 167 mg/dL (70-105) H 04/14/20 17:30 Hemoglobin A1c 5.5 % (4-6) 04/12/20 06:51 Calcium 9.5 mg/dL (8.4-10.2) 04/12/20 06:51 Magnesium 2.20 mg/dL (1.7-2.3) 04/08/20 23:20 Total Bilirubin 0.80 mg/dL (0.1-1.2) 04/12/20 06:51 AST 19 units/L (5-40) 04/12/20 06:51 ALT 11 units/L (7-56) 04/12/20 06:51 Alkaline Phosphatase 66 units/L (35-129) 04/12/20 06:51 Total Creatine Kinase 66 units/L (55-170) 04/09/20 03:46 CK-MB (CK-2) 1.4 ng/mL (0.0-4.0) 04/09/20 03:46 CK-MB (CK-2) Rel Index 2.1 (0-4) 04/09/20 03:46 Troponin T < 0.010 ng/mL (0.00-0.029) 04/09/20 13:40 Total Protein 7.0 g/dL (6.3-8.2) 04/12/20 06:51 Albumin 3.7 g/dL (3.9-5) L 04/12/20 06:51 Albumin/Globulin Ratio 1.1 % 04/12/20 06:51 Triglycerides 72 mg/dL (2-149) 04/11/20 04:25 Cholesterol 203 mg/dL (50-199) H 04/11/20 04:25 LDL Cholesterol Direct 119 mg/dL (50-130) 04/11/20 04:25 HDL Cholesterol 79 mg/dL (40-59) H 04/11/20 04:25 Cholesterol/HDL Ratio 2.56 % 04/11/20 04:25 TSH 1.380 mlU/mL (0.270-4.200) 04/08/20 23:20 Salicylates < 0.3 mg/dL (2.8-20.0) L 04/08/20 23:20 Acetaminophen 5.0 ug/mL (10.0-30.0) L 04/08/20 23:20 - Diagnostic Impressions Diagnostic Impressions: Echocardiogram 04/09/20 05:27 Transthoracic Echocardiogram Indication: Syncope BP: 173/85 HR: 63 Conclusions *Normal LV size and systolic function. *The estimated ejection fraction is 60-65%. *Mild concentric left ventricular hypertrophy is observed. *There is trace of mitral regurgitation. *There is trace of aortic regurgitation. *There is trace tricuspid regurgitation. Findings Left Ventricle: The left ventricular chamber size is normal. Mild concentric left ventricular hypertrophy is observed. Global left ventricular systolic function is normal. The estimated ejection fraction is 60-65%. Left Atrium: The left atrial chamber size is normal. Right Ventricle: The right ventricular cavity size is normal. Right Atrium: The right atrial cavity size is normal. Aortic Valve: The aortic valve is trileaflet. The aortic valve leaflets are mildly thickened. There is trace of aortic regurgitation. There is no evidence of aortic stenosis. Mitral Valve: The mitral valve leaflets are mildly thickened. There is trace of mitral regurgitation. There is no evidence of mitral stenosis. Tricuspid Valve: There is trace tricuspid regurgitation. No pulmonary hypertension is noted. Pulmonic Valve: There is trace pulmonic regurgitation. Pericardium: There is no pericardial effusion. Aorta: There is no dilatation of the aortic root. Venous: The inferior vena cava appears normal in size. Measurements Chambers 2D Name Value Normal Range IVSd (2D) 0.87 cm (0.6 - 1.1) LVPWd (2D) 0.86 cm (0.6 - 1.1) LVIDd (2D) 4.05 cm (3.7 - 5.6) LVIDs (2D) 2.79 cm (2 - 3.8) LV FS (2D) 30.98 % - EF Teichholz (2D) 59.19 % - Ao root diameter (2D) 3.25 cm (2 - 3.7) Volumes/Mass Name Value Normal Range LA ESV SP 4CH (A/L) 13.5 ml - LA ESV SP 2CH (A/L) 21.42 ml - LA ESV BP (A/L) 18.77 ml - LA ESV BP (A/L) index 8.98 ml/m2 - LA ESV SP 4CH (MOD) 11.92 ml - LA ESV SP 2CH (MOD) 21.16 ml - LA ESV BP (MOD) 17.29 ml - LA ESV BP (MOD) index 8.27 ml/m2 - Diastolic/Systolic Function Name Value Normal Range MV E-wave Vmax 0.6 m/sec - MV deceleration time 258.19 msec - MV A-wave Vmax 0.83 m/sec - MV E:A ratio 0.73 ratio - Aortic Valve Name Value Normal Range AV Vmax 1.39 m/sec - AV VTI 28.77 cm - AV peak gradient 7.67 mmHg - AV mean gradient 4.18 mmHg - LVOT diameter 2.04 cm - LVOT Vmax 1.22 m/sec - LVOT VTI 23.64 cm - LVOT peak gradient 5.93 mmHg - LVOT mean gradient 3.31 mmHg - SV LVOT 77.33 ml - VALERIE (continuity Vmax) 2.87 cm2 - VALERIE (continuity VTI) 2.69 cm2 - Pulmonic Valve/Qp:Qs Name Value Normal Range PV acceleration time 91.34 msec - Collazo/IV: Voiding Method Condom Catheter IV Catheter Type [Right INT / Saline Lock Antecubital] Active Medications - Current Medications Current Medications: Generic Name Dose Route Start Last Admin Trade Name Freq PRN Reason Stop Dose Admin Amlodipine Besylate 10 mg 04/09/20 17:00 04/14/20 09:25 Amlodipine PO 10 mg QDAY BENJAMIN Administration Aspirin 325 mg 04/09/20 10:00 04/14/20 09:25 Aspirin PO 325 mg QDAY BENJAMIN Administration Atorvastatin Calcium 40 mg 04/13/20 22:00 04/13/20 21:15 Lipitor PO 40 mg QHS BENJAMIN Administration Dextrose 0 ml 04/09/20 05:35 D50w (25gm) Syringe IV Q30MIN PRN Hypoglycemia Protocol Hydralazine HCl 20 mg 04/10/20 02:59 04/11/20 05:31 Apresoline IV 20 mg Q6H PRN Administration Hypertension Hydralazine HCl 100 mg 04/14/20 09:00 04/14/20 15:52 Apresoline PO Not Given Q8HR BENJAMIN Insulin Human Regular 0 unit 04/09/20 07:30 04/14/20 17:57 Humulin R SUB-Q 1 unit AC BENJAMIN Administration Protocol Insulin Human Regular 0 unit 04/09/20 22:00 04/13/20 21:15 Humulin R SUB-Q Not Given QHS [facility] Protocol Memantine 10 mg 04/10/20 18:00 04/14/20 09:28 Memantine PO 10 mg DAILY BENJAMIN Administration Olanzapine 7.5 mg 04/13/20 10:00 04/14/20 09:25 Zyprexa PO 7.5 mg QDAY BENJAMIN Administration Ziprasidone 10 mg 04/11/20 14:00 04/13/20 15:21 Geodon IM 10 mg Q4H PRN Administration Agitation
[2020-04-15] MEDS: hydrALAZINE 100 MG TAB PO SCH ×3 (06:00→22:23)
[2020-04-15] MEDS ORDERED: ASPIRIN 325 MG TAB ONE (10:01)
[2020-04-15] MEDS ORDERED: amLODIPine 10 MG TAB ONE (10:01)
[2020-04-15] MEDS ORDERED: MEMANTINE 10 MG TAB ONE (10:01)
--- NOTE | 2020-04-15 18:43 | Progress Note ---
Assessment and Plan Assessment and plan: --Syncope and collapse Current Visit: Yes Status: Acute Plan to address problem: 04/08 CT head shows decreasing to duration of the right frontal white matter and right posterior frontal lobe negro matter characteristic of ischemic changes which appears to be subacute or chronic, atrophy and microangiopathy, chronic lacunar infarcts in the right basal ganglia and left thalamus 04/12 CTA neck shows no significant abnormality with less than 20% stenosis in the right proximal internal carotid artery 04/12 CTA head shows no large vessel occlusion however atheromatous changes in the branches of the middle and anterior cerebral arteries bilaterally, none stenotic atheromatous changes in the basilar artery 04/13 MRI brain shows no acute parenchymal lesion in the brain 04/11 EEG interpretation shows some diffuse slowing which is compatible with mild diffuse encephalopathy, toxic/metabolic abnormality, diffuse degenerative changes of the brain, post ictal state etc. etc. clinical correlation is recommended. A repeat EEG may be appropriate at a later date 04/09 TTE shows estimated EF of 60 to 65%, mild concentric LVH, trace MR, trace AR, trace pulmonic regurgitation and trace TR PT consult recommends subacute rehab ASA and statin therapy Aspiration and fall precautions -- Hypertension Current Visit: No Status: Chronic Plan to address problem: Resume home antihypertensive regimen Blood pressure monitor per protocol -- Dementia Current Visit: Yes Status: Chronic Plan to address problem: Psych consulted, patient recommendations Patient is currently on Zyprexa twice daily 04/14 psych has signed off Continue home memantime Supportive care Aspiration and fall precautions As needed Geodon --Dyslipidemia Current Visit: No Status: Chronic Plan to address problem: Continue home statin therapy -- DVT prophylaxis Current Visit: No Status: Acute Plan to address problem: SCDs to bilateral extremities Lovenox subcu Closely monitor the patient and adjust management as needed Discharge planning per case management Plan of care reviewed with the patient's nurse History Interval history: I have seen and examined the patient at the bedside Patient's medical chart overnight events reviewed Patient feels better no new complaints Vital signs noted No new episodes of syncope Hospitalist Physical - Constitutional Vitals: Temp Pulse Resp BP Pulse Ox 97.4 F L 84 18 110/88 97 04/14/20 22:17 04/14/20 22:17 04/14/20 22:17 04/14/20 22:17 04/14/20 22:17 General appearance: Present: no acute distress, well-nourished - EENT Eyes: Present: PERRL, EOM intact - Neck Neck: Present: supple, normal ROM - Respiratory Respiratory effort: normal Respiratory: bilateral: diminished, negative: rales, rhonchi, wheezing - Cardiovascular Rhythm: regular Heart Sounds: Present: S1 & S2 - Extremities Extremities: no ischemia, No edema - Abdominal General gastrointestinal: soft, non-tender, non-distended, normal bowel sounds - Integumentary Integumentary: Present: clear, warm - Psychiatric Psychiatric: appropriate mood/affect, cooperative - Neurologic Neurologic: moves all extremities HEART Score - HEART Score Age: > 65 Risk factors: 1-2 risk factors Troponin: Troponin T < 0.010 ng/mL (0.00-0.029) 04/09/20 13:40 - Critical Actions Critical Actions: 0-3 pts:0.9-1.7%risk of adverse cardiac event.Candidate for discharge Results - Labs CBC & Chem 7: 04/10/20 10:52 04/12/20 06:51 Labs: Laboratory Last Values WBC 9.5 K/mm3 (4.5-11.0) 04/10/20 10:52 RBC 3.87 M/mm3 (3.65-5.03) 04/10/20 10:52 Hgb 12.2 gm/dl (11.8-15.2) 04/10/20 10:52 Hct 35.9 % (35.5-45.6) 04/10/20 10:52 MCV 93 fl (84-94) 04/10/20 10:52 MCH 32 pg (28-32) 04/10/20 10:52 MCHC 34 % (32-34) 04/10/20 10:52 RDW 14.7 % (13.2-15.2) 04/10/20 10:52 Plt Count 254 K/mm3 (140-440) 04/10/20 10:52 Lymph % (Auto) 31.4 % (13.4-35.0) 04/10/20 10:52 [place] % (Auto) 8.9 % (0.0-7.3) H 04/10/20 10:52 Eos % (Auto) 1.5 % (0.0-4.3) 04/10/20 10:52 Baso % (Auto) 0.7 % (0.0-1.8) 04/10/20 10:52 Lymph # (Auto) 3.0 K/mm3 (1.2-5.4) 04/10/20 10:52 [place] # (Auto) 0.8 K/mm3 (0.0-0.8) 04/10/20 10:52 Eos # (Auto) 0.1 K/mm3 (0.0-0.4) 04/10/20 10:52 Baso # (Auto) 0.1 K/mm3 (0.0-0.1) 04/10/20 10:52 Seg Neutrophils % 57.5 % (40.0-70.0) 04/10/20 10:52 Seg Neutrophils # 5.5 K/mm3 (1.8-7.7) 04/10/20 10:52 PT 12.8 Sec. (12.2-14.9) 04/09/20 03:46 INR 0.94 (0.87-1.13) 04/09/20 03:46 APTT 29.2 Sec. (24.2-36.6) 04/09/20 03:46 Thrombin Time 16.3 Sec. (15.1-19.6) 04/09/20 03:46 Sodium 145 mmol/L (137-145) 04/12/20 06:51 Potassium 3.5 mmol/L (3.6-5.0) L 04/12/20 06:51 Chloride 108.4 mmol/L (98-107) H 04/12/20 06:51 Carbon Dioxide 25 mmol/L (22-30) 04/12/20 06:51 Anion Gap 15 mmol/L 04/12/20 06:51 BUN 11 mg/dL (9-20) 04/12/20 06:51 Creatinine 0.9 mg/dL (0.8-1.3) 04/12/20 06:51 Estimated GFR > 60 ml/min 04/12/20 06:51 BUN/Creatinine Ratio 12 % 04/12/20 06:51 Glucose 130 mg/dL (75-100) H 04/12/20 06:51 POC Glucose 214 mg/dL (70-105) H 04/15/20 17:00 Hemoglobin A1c 5.5 % (4-6) 04/12/20 06:51 Calcium 9.5 mg/dL (8.4-10.2) 04/12/20 06:51 Magnesium 2.20 mg/dL (1.7-2.3) 04/08/20 23:20 Total Bilirubin 0.80 mg/dL (0.1-1.2) 04/12/20 06:51 AST 19 units/L (5-40) 04/12/20 06:51 ALT 11 units/L (7-56) 04/12/20 06:51 Alkaline Phosphatase 66 units/L (35-129) 04/12/20 06:51 Total Creatine Kinase 66 units/L (55-170) 04/09/20 03:46 CK-MB (CK-2) 1.4 ng/mL (0.0-4.0) 04/09/20 03:46 CK-MB (CK-2) Rel Index 2.1 (0-4) 04/09/20 03:46 Troponin T < 0.010 ng/mL (0.00-0.029) 04/09/20 13:40 Total Protein 7.0 g/dL (6.3-8.2) 04/12/20 06:51 Albumin 3.7 g/dL (3.9-5) L 04/12/20 06:51 Albumin/Globulin Ratio 1.1 % 04/12/20 06:51 Triglycerides 72 mg/dL (2-149) 04/11/20 04:25 Cholesterol 203 mg/dL (50-199) H 04/11/20 04:25 LDL Cholesterol Direct 119 mg/dL (50-130) 04/11/20 04:25 HDL Cholesterol 79 mg/dL (40-59) H 04/11/20 04:25 Cholesterol/HDL Ratio 2.56 % 04/11/20 04:25 TSH 1.380 mlU/mL (0.270-4.200) 04/08/20 23:20 Salicylates < 0.3 mg/dL (2.8-20.0) L 04/08/20 23:20 Acetaminophen 5.0 ug/mL (10.0-30.0) L 04/08/20 23:20 - Diagnostic Impressions Diagnostic Impressions: Echocardiogram 04/09/20 05:27 Transthoracic Echocardiogram Indication: Syncope BP: 173/85 HR: 63 Conclusions *Normal LV size and systolic function. *The estimated ejection fraction is 60-65%. *Mild concentric left ventricular hypertrophy is observed. *There is trace of mitral regurgitation. *There is trace of aortic regurgitation. *There is trace tricuspid regurgitation. Findings Left Ventricle: The left ventricular chamber size is normal. Mild concentric left ventricular hypertrophy is observed. Global left ventricular systolic function is normal. The estimated ejection fraction is 60-65%. Left Atrium: The left atrial chamber size is normal. Right Ventricle: The right ventricular cavity size is normal. Right Atrium: The right atrial cavity size is normal. Aortic Valve: The aortic valve is trileaflet. The aortic valve leaflets are mildly thickened. There is trace of aortic regurgitation. There is no evidence of aortic stenosis. Mitral Valve: The mitral valve leaflets are mildly thickened. There is trace of mitral regurgitation. There is no evidence of mitral stenosis. Tricuspid Valve: There is trace tricuspid regurgitation. No pulmonary hypertension is noted. Pulmonic Valve: There is trace pulmonic regurgitation. Pericardium: There is no pericardial effusion. Aorta: There is no dilatation of the aortic root. Venous: The inferior vena cava appears normal in size. Measurements Chambers 2D Name Value Normal Range IVSd (2D) 0.87 cm (0.6 - 1.1) LVPWd (2D) 0.86 cm (0.6 - 1.1) LVIDd (2D) 4.05 cm (3.7 - 5.6) LVIDs (2D) 2.79 cm (2 - 3.8) LV FS (2D) 30.98 % - EF Teichholz (2D) 59.19 % - Ao root diameter (2D) 3.25 cm (2 - 3.7) Volumes/Mass Name Value Normal Range LA ESV SP 4CH (A/L) 13.5 ml - LA ESV SP 2CH (A/L) 21.42 ml - LA ESV BP (A/L) 18.77 ml - LA ESV BP (A/L) index 8.98 ml/m2 - LA ESV SP 4CH (MOD) 11.92 ml - LA ESV SP 2CH (MOD) 21.16 ml - LA ESV BP (MOD) 17.29 ml - LA ESV BP (MOD) index 8.27 ml/m2 - Diastolic/Systolic Function Name Value Normal Range MV E-wave Vmax 0.6 m/sec - MV deceleration time 258.19 msec - MV A-wave Vmax 0.83 m/sec - MV E:A ratio 0.73 ratio - Aortic Valve Name Value Normal Range AV Vmax 1.39 m/sec - AV VTI 28.77 cm - AV peak gradient 7.67 mmHg - AV mean gradient 4.18 mmHg - LVOT diameter 2.04 cm - LVOT Vmax 1.22 m/sec - LVOT VTI 23.64 cm - LVOT peak gradient 5.93 mmHg - LVOT mean gradient 3.31 mmHg - SV LVOT 77.33 ml - VALERIE (continuity Vmax) 2.87 cm2 - VALERIE (continuity VTI) 2.69 cm2 - Pulmonic Valve/Qp:Qs Name Value Normal Range PV acceleration time 91.34 msec - Collazo/IV: Voiding Method Condom Catheter IV Catheter Type [Right INT / Saline Lock Antecubital] Active Medications - Current Medications Current Medications: Generic Name Dose Route Start Last Admin Trade Name Freq PRN Reason Stop Dose Admin Amlodipine Besylate 10 mg 04/09/20 17:00 04/14/20 09:25 Amlodipine PO 10 mg QDAY BENJAMIN Administration Aspirin 325 mg 04/09/20 10:00 04/14/20 09:25 Aspirin PO 325 mg QDAY BENJAMIN Administration Atorvastatin Calcium 40 mg 04/13/20 22:00 04/14/20 21:46 Lipitor PO 40 mg QHS BENJAMIN Administration Dextrose 0 ml 04/09/20 05:35 D50w (25gm) Syringe IV Q30MIN PRN Hypoglycemia Protocol Hydralazine HCl 20 mg 04/10/20 02:59 04/11/20 05:31 Apresoline IV 20 mg Q6H PRN Administration Hypertension Hydralazine HCl 100 mg 04/14/20 09:00 04/14/20 21:37 Apresoline PO Not Given Q8HR [facility] Insulin Human Regular 0 unit 04/09/20 07:30 04/14/20 17:57 Humulin R SUB-Q 1 unit AC BENJAMIN Administration Protocol Insulin Human Regular 0 unit 04/09/20 22:00 04/14/20 21:38 Humulin R SUB-Q Not Given QHS [facility] Protocol Memantine 10 mg 04/10/20 18:00 04/14/20 09:28 Memantine PO 10 mg DAILY BENJAMIN Administration Olanzapine 7.5 mg 04/13/20 10:00 04/14/20 09:25 Zyprexa PO 7.5 mg QDAY BENJAMIN Administration Ziprasidone 10 mg 04/11/20 14:00 04/13/20 15:21 Geodon IM 10 mg Q4H PRN Administration Agitation
--- NOTE | 2020-04-15 18:47 | Event Note ---
Date: 04/15/20 I called patient's son Mr. Berry and discussed in detail patient's condition, treatment plan, tests and reports Consultants recommendation, PT evaluation, recommendations of subacute rehab placement, psych recommendations And discharge planning. He had numerous questions I answered all of them, encouraged him to discuss with case management Tomorrow regarding different options which are beneficial for the patient at the time of discharge. Verbalized understanding
[2020-04-15] MEDS ORDERED: WATER FOR INJ Sterile (PF) 10 ML ONE (22:36)
[2020-04-15] MEDS: ZIPRASIDONE MESYLATE 20 MG VIAL IM PRN (22:47)
[2020-04-15] MEDS: INSULIN REGULAR, HUMAN 100 UNIT/ML 3ML VIAL SUB-Q SCH (22:49)
[2020-04-16] MEDS: hydrALAZINE 100 MG TAB PO SCH (06:52)
[2020-04-16] MEDS: INSULIN REGULAR, HUMAN 100 UNIT/ML 3ML VIAL SUB-Q SCH ×5 (09:10→13:28)
[2020-04-16] MEDS: amLODIPine 10 MG TAB PO SCH ×3 (09:20→13:28)
[2020-04-16] MEDS: ASPIRIN 325 MG TAB PO SCH ×3 (09:21→13:28)
[2020-04-16] MEDS: MEMANTINE 10 MG TAB PO SCH ×3 (09:21→13:28)
--- NOTE | 2020-04-16 15:04 | Discharge Summary ---
Providers - Providers Date of Admission: 04/11/20 17:44 Attending physician: DANNY MATUTE 04/09/20 05:33 Consult to Physician [CONS] Routine Comment: Consulting Provider: MELINA KRISHNA Physician Instructions: Reason For Exam: TIA AND SYNCOPE 04/09/20 06:22 Physical Therapy Evaluation and Treat [CONS] Routine Comment: Reason For Exam: CVA Speech Therapy Evaluation and Treat [CONS] Routine Reason For Exam: CVA 04/10/20 15:02 Occupational Therapy Evaluate and Treat [CONS] Routine Comment: Reason For Exam: eval and assess pt function 04/10/20 17:21 psychiatry consult [Consult to Mental Health] [CONS] Routine Reason For Exam: Psychosis 04/12/20 20:45 Physical Therapy Evaluation and Treat [CONS] Routine Comment: Reason For Exam: Debility Primary care physician: CONDUCTOR PULLMAN Hospitalization Condition: Stable Hospital course: Patient is a 70-year-old male with a medical history of hypertension, diabetes mellitus, CVA, dementia who was brought to emergency room on 04/10 by family as he reportedly passed out while he was having dinner. Per report, patient was not responsive for almost 5 minutes. Patient has no recollection of events. In the ER, he had a CT of the head performed that showed some cortical changes in the right frontal lobe. Neurology was consulted for further evaluation. Patient experienced agitation overnight and he was aggressive towards staff therefore he was placed in four-point restraints and security was called several times. Patient was initiated on Zyprexa by psych on 04/11 and a psychiatric evaluation was obtained which diagnosed him with dementia with behavioral disturbances. On 04/12 he received a CTA head and neck which showed no LVO and less than 20% stenosis in the R ICA. On 04/13 he obtained an MRI which showed no acute parenchymal lesion in the brain. Patient's TTE showed a EF of 60 to 65% with mild concentric LVH and trace MR, AR, CT and TR. Patient will be discharged home with home health physical therapy upon family request. Patient will be given a prescription for Zyprexa and the family will be able to use that at their own leisure. He will be discharged home with a rolling walker. Patient had a moment of agitation this morning where he tried to punch the RN. (1) Syncope and collapse Current Visit: Yes Status: Acute Plan to address problem: 04/08 CT head shows decreasing to duration of the right frontal white matter and right posterior frontal lobe negro matter characteristic of ischemic changes which appears to be subacute or chronic, atrophy and microangiopathy, chronic lacunar infarcts in the right basal ganglia and left thalamus 04/12 CTA neck shows no significant abnormality with less than 20% stenosis in the right proximal internal carotid artery 04/12 CTA head shows no large vessel occlusion however atheromatous changes in the branches of the middle and anterior cerebral arteries bilaterally, none stenotic atheromatous changes in the basilar artery 04/13 MRI brain shows no acute parenchymal lesion in the brain 04/11 EEG interpretation shows some diffuse slowing which is compatible with mild diffuse encephalopathy, toxic/metabolic abnormality, diffuse degenerative changes of the brain, post ictal state etc. etc. clinical correlation is recommended. A repeat EEG may be appropriate at a later date 04/09 TTE shows estimated EF of 60 to 65%, mild concentric LVH, trace MR, trace AR, trace pulmonic regurgitation and trace TR PT consult recommends subacute rehab the patient will be discharged with home health PT Continue ASA and statin therapy Continue aspiration and fall precautions CVA, seizure ruled out Etiology of syncope unknown (2) Hypertension Current Visit: No Status: Chronic Plan to address problem: Resume home antihypertensive regimen Blood pressure monitoring per PCP instructions (3) Dementia Current Visit: Yes Status: Chronic Qualifiers: Dementia behavioral disturbance: with behavioral disturbance Plan to address problem: Psych consulted, patient recommendations to continue Zyprexa and follow-up with mental health outpatient Patient is currently on Zyprexa twice daily 04/14 psych has signed off Continue home memantime Supportive care Aspiration and fall precautions (4) Dyslipidemia Current Visit: No Status: Chronic Plan to address problem: Continue home statin therapy (4) toxic metabolic encephalopathy Current Visit: No Status: Acute Plan to address problem: Caused by metabolic derangements which are corrected Disposition: DC-01 TO HOME OR SELFCARE Time spent for discharge: 40 Core Measure Documentation - Palliative Care Palliative Care/ Comfort Measures: Not Applicable - Core Measures Any of the following diagnoses?: history only Exam - Physical Exam Narrative exam: General appearance: Present: no acute distress - EENT Eyes: Present: PERRL, EOM intact ENT: hearing decreased, poor dentition - Neck Neck: Present: supple, normal ROM - Respiratory Respiratory effort: normal Respiratory: bilateral: CTA - Cardiovascular Rhythm: regular Heart Sounds: Present: S1 & S2. Absent: systolic murmur, diastolic murmur - Extremities Extremities: no ischemia, pulses intact, pulses symmetrical, No edema, normal temperature, normal color, Full ROM Peripheral Pulses: within normal limits - Abdominal General gastrointestinal: soft, non-tender, normal bowel sounds - Integumentary Integumentary: Present: clear, warm, dry - Psychiatric Psychiatric: cooperative - Neurologic Neurologic: CNII-XII intact, no focal deficits - Allied Health Allied health notes reviewed: nursing - Constitutional Vitals: Temp Pulse Resp BP Pulse Ox 98.0 F 88 20 128/59 99 04/16/20 11:18 04/16/20 10:00 04/16/20 11:18 04/16/20 11:18 04/16/20 03:47 Plan Activity: advance as tolerated Diet: low fat, low cholesterol, low salt Special Instructions: record daily BP diary, physical therapy Durable Medical Equipment Needed Upon Discharge: Walker-Rolling Additional Instructions: Contact your primary care physician or present to nearest emergency department if experience worsening symptoms. You will be discharged with home health PT and a rolling walker. Follow-up with your physician within 1 to 2 weeks of discharge. Follow-up with the neurologist in 1 to 2 weeks of discharge. Patient is advised to follow-up with [facility] within 3 to 5 days of discharge. Plan of Treatment: Home PT with [place] [facility] [phone]. Spouse to call and resume [employer] with [employer]. Follow up with: PRIMARY MD GA [Primary Care Provider] - 3-5 Days LEONARD KIDD MD [Staff Physician] - [address] [facility] [Outside] - 7 Days Prescriptions: AtorvaSTATin [Lipitor] 40 mg PO QHS #30 tablet amLODIPine 10 mg PO QDAY #30 tablet Aspirin 325 mg PO QDAY #30 tablet OLANzapine [ZyPREXA] 7.5 mg PO DAILY #30 tablet
[2020-04-16 16:55] VITALS: BP 150/71
== END 2020-04-16 17:49 | disposition home or self-care (01) | DRG 69 ==
LOC: ED 21:18 → 4A 04-09 03:37 → OBSVTOIN 04-11 17:44
PROVIDERS: ADMIT Internal Medicine; ATTEND Internal Medicine
DX: G45.9 Transient cerebral ischemic attack, unspecified (principal); G92 Toxic encephalopathy; R55 Syncope and collapse; Z20.828 Contact with and (suspected) exposure to other viral communicable diseases; I10 Essential (primary) hypertension; E11.9 Type 2 diabetes mellitus without complications; F03.90 Unspecified dementia, unspecified severity, without behavioral disturbance, psychotic disturbance, mood disturbance, and anxiety; E78.5 Hyperlipidemia, unspecified
CPT/HCPCS: 36415; 70450; 70496; 70498; 70553; 71045; 80053; 80061; 80320; 82550; 82553; 82962; 83036; 83735; 84443; 84484; 85025; 85610; 85670; 85730; 93005; 93306; 95819; G0378; A9270-GY; A9577; G0480; J0360; J1815; J2060; J3486; J7030; Q9967; U0003